=== PATIENT | male | born 1955 | race African-American/Black ===

== ENCOUNTER 2016-06-29 23:06 | Inpatient (IN) | payer OTHER ==
[2016-06-29 23:11] VITALS: BMI 31.1
[2016-06-29] MEDS ORDERED: SODIUM CHLORIDE 1,000 ML IV STA (23:55)
[2016-06-29] MEDS ORDERED: ALBUTEROL SO4 2.5/IPRATROPIUM 0.5 INH SOL 3 ML VIAL.NEB. NEB STA (23:56)
[2016-06-29] MEDS ORDERED: ACETAMINOPHEN 1000 MG/100 ML VIAL (NON FORMULARY) IVPB ONE (23:56)
--- NOTE | 2016-06-29 23:57 | PDOC ---
History of Present Illness - General History Source: Patient <Ubaldo Zhu - Last Filed: 06/30/16 01:42> - General History Source: Patient Exam Limitations: No Limitations - History of Present Illness Initial Comments: 06/30/16 00:19 The patient is a 60 year old male with no reported significant past medical history, who presents to the ER with left sided chest pain for 12 hours. Patient describes the pain as sharp and rates it at 8/10. 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 He says the chest pain has persisted since this morning and is nonradiating, with no remitting or exacerbating factors. He says he has associated chills, headache, shortness of breath, and nonproductive cough. Patient states he has not seen a doctor in over 10 years. Denies heavy lifting, leg pain or edema Denies fever Denies nausea, vomiting, diarrhea, abdominal pain Social Hx: 6 cigs/day for 30 years, social alcohol use on weekends, denies drug use <Diane Blake - Last Filed: 06/30/16 06:05> - General Chief Complaint: Chest Pain Stated Complaint: CHEST PAIN Time Seen by Provider: 06/29/16 23:54 Past History - Surgical History Appendectomy: Yes - Psycho/Social/Smoking Cessation Hx Suicidal Ideation: No Smoking History: Current every day smoker Number of Cigarettes Smoked Daily: 6 Information on smoking cessation initiated: No <Ubaldo Zhu - Last Filed: 06/30/16 01:42> <Diane Blake - Last Filed: 06/30/16 06:05> - Past Medical History Allergies/Adverse Reactions: Allergies Allergy/AdvReac Type Severity Reaction Status Date / Time No Known Allergies Allergy Verified 06/29/16 23:30 Home Medications: Ambulatory Orders NK [No Known Home Medication] 06/29/16 Review of Systems - Review of Systems Comments:: 06/30/16 00:20 CONSTITUTIONAL: Present: chills Absent: fever, no fatigue EYES: Absent: visual changes ENT: Absent: ear pain, no sore throat CARDIOVASCULAR: Present: (+) chest pain Absent: no palpitations RESPIRATORY: Present: (+) nonproductive cough, (+) SOB GI: Absent: abdominal pain, no nausea, no vomiting, no constipation, no diarrhea GENITOURINARY: Absent: dysuria, no frequency, no hematuria MUSCULOSKELETAL: Absent: back pain, no arthralgia, no myalgia SKIN: Absent: rash NEURO: Present: (+) headache <Diane Blake - Last Filed: 06/30/16 06:05> *Physical Exam - Vital Signs Last Vital Signs Temp Pulse Resp BP Pulse Ox 103 F H 124 H 20 169/98 95 06/29/16 23:09 06/29/16 23:09 06/29/16 23:09 06/29/16 23:09 06/29/16 23:09 <Ubaldo Zhu - Last Filed: 06/30/16 01:42> - Vital Signs Last Vital Signs Temp Pulse Resp BP Pulse Ox 103 F H 124 H 20 169/98 95 06/29/16 23:09 06/29/16 23:09 06/29/16 23:09 06/29/16 23:09 06/29/16 23:09 - Physical Exam Comments: 06/30/16 00:21 GENERAL: Well-appearing, well-nourished. No apparent distress. HEENT: Normocephalic, atraumatic. PERRL, EOM intact. CARDIOVASCULAR: Tachycardic. No murmurs. Normal S1, S2. Regular rhythm. PULMONARY: Auscultation of left upper and middle lobes yields inspiratory wheezes and expiratory rhonchi. Right lobes clear to auscultation. ABDOMEN: Soft, non-distended, non-tender. EXTREMITIES: No calf tenderness or swelling. Normal ROM in all four extremities. No gross deformities. SKIN: Warm, dry. No rash NEUROLOGICAL: No focal neurological deficits. <Diane Blake - Last Filed: 06/30/16 06:05> ED Treatment Course - LABORATORY CBC & Chemistry Diagram: 06/30/16 00:30 06/30/16 00:30 <Ubaldo Zhu - Last Filed: 06/30/16 01:42> - LABORATORY CBC & Chemistry Diagram: 06/30/16 00:30 06/30/16 00:30 - RADIOLOGY Radiograph Interpretation: 06/30/16 06:05 CT Chest Impression reported by Dr. Edwige Carlos: Consolidation left upper lobe, probably pneumonia. Advise follow-up after treatment to exclude underlying mass. No definite PE, but evaluation limited by motion artifact. No aortic dissection or aneurysm. Dependent atelectasis bilateral lungs. Trace left pleural effusion. Coronary artery disease. Small pericardial effusion. <Diane Blake - Last Filed: 06/30/16 06:05> *DC/Admit/Observation/Transfer - Discharge Dispostion Admit: Yes <Ubaldo Zhu - Last Filed: 06/30/16 01:42> - Attestations Scribe Attestion: 06/30/16 00:22 Documentation prepared by Diane Blake, acting as medical dosimetrist for Ubaldo Zhu DO. <Diane Blake - Last Filed: 06/30/16 06:05> Diagnosis at time of Disposition: Pneumonia Qualifiers: Pneumonia type: due to unspecified organism Laterality: left Lung location: lower lobe of lung Qualified Code(s): J18.1 - Lobar pneumonia, unspecified organism
[2016-06-30] MEDS ORDERED: ALBUTEROL SO4 2.5/IPRATROPIUM 0.5 INH SOL 3 ML VIAL.NEB. NEB ONE (00:43)
[2016-06-30] MEDS ORDERED: ACETAMINOPHEN INJECTION 100 ML IVPB ONE (00:43)
[2016-06-30 00:50] LABS: BASOPHIL 0.2 % (0-2.0); MCH 32.8 pg (25.7-33.7); MCHC 34.1 g/dl (32.0-35.9); MEAN CELL VOLUME 96.1 fl (80-96); MEAN PLT VOLUME 9.7 fl (7.5-11.1); PLATELET COUNT 220 K/MM3 (134-434); RDW 13.9 % (11.9-15.9)
[2016-06-30] MEDS ORDERED: AZITHROMYCIN 250 MG TABLET (FP) PO STA (01:00)
[2016-06-30 01:03] LABS: INR 1.12 (0.82-1.09); PROTHROMBIN TIME (PATIENT) 12.3 SEC (9.98-11.88)
[2016-06-30 01:41] LABS: ALBUMIN 3.9 g/dl (3.4-5.0); ALK PHOS 79 U/L (45-117); ANION GAP 12 (8-16); BILIRUBIN,TOTAL 0.8 mg/dL (0.2-1.0); CALCIUM 8.9 mg/dL (8.5-10.1); CO2 25 mmol/L (21-32); COCKROFT - GAULT 72.29; CREATININE 1.2 mg/dL (0.7-1.3); GLUCOSE,RANDOM 102 mg/dL (74-106); MAGNESIUM 1.7 mg/dL (1.8-2.4); SGOT/AST 54 U/L (15-37); SGPT/ALT 55 U/L (12-78); TROPONIN I 0.03 ng/ml (0.00-0.05)
[2016-06-30] MEDS ORDERED: CEFTRIAXONE 50 ML ONE (01:42)
[2016-06-30] MEDS ORDERED: AZITHROMYCIN 250 MG TABLET (FP) ONE (01:42)
[2016-06-30] MEDS ORDERED: MAGNESIUM SULF 50% (8.12 MEQ/2 ML-1 GM VIAL) IVPB ONE (02:22)
[2016-06-30] MEDS ORDERED: ALBUTEROL SO4 2.5/IPRATROPIUM 0.5 INH SOL 3 ML VIAL.NEB. NEB PRN (02:27)
[2016-06-30] MEDS: SODIUM CHLORIDE 1,000 ML IV SCH (02:42)
[2016-06-30] MEDS ORDERED: ASPIRIN 325 MG TABLET PO ONE (03:33)
--- NOTE | 2016-06-30 03:33 | PN ---
<Nida Villar - Last Filed: 06/30/16 04:32> Teaching Attending Note ATTENDING PHYSICIAN STATEMENT I saw and evaluated the patient. I reviewed the resident's note and discussed the case with the resident. I agree with the resident's findings and plan as documented. SUBJECTIVE: 60 yo M with no PMHx who presents with L sided chest pain for the past 12 hours. The patient describes the chest pain is sharp, 8/10 in severity, non radiating exacerbated by positional changes. The patient states his pain first began this morning and has been intermittent throughout the day. Patient reports associated chills, headache, shortness of breath, and nonproductive cough. Patient states he has not seen a doctor in over 10 years. 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 PMHx: None PSHx: Appendectomy Social hx: Current smoker 6 cigs/day for 30 years, social alcohol use on weekends, denies drug use Allergies: NKA OBJECTIVE: Last Vital Signs Temp Pulse Resp BP Pulse Ox 97.8 F 99 H 22 140/83 94 L 06/30/16 03:35 06/30/16 03:35 06/30/16 03:35 06/30/16 03:35 06/30/16 01:58 GENERAL: Awake, alert, and fully oriented, in moderate distress. +Pain 8/10 HEENT: Atraumatic. PERRLA, EOMI. Moist mucosa. No JVD LUNGS:+ Rhonchi. + L hemothorax. No distress, speaks full sentences, clear to auscultation bilaterally HEART: +Diaphoretic with pericardial rub. +Tachycardia. Regular rate normal S1 and S2, no murmurs, rubs or gallops, peripheral pulses normal and equal bilaterally. ABDOMEN: Soft, nontender, normoactive bowel sounds. No guarding, no rebound. No masses EXTREMITIES: Normal inspection, Normal range of motion, no edema. No clubbing or cyanosis. NEUROLOGICAL: Cranial nerves II through XII grossly intact. Normal speech, gait deffered no focal sensorimotor deficits SKIN: Warm, Dry, normal turgor, no rashes or lesions noted. CBCD WBC 16.0 K/mm3 (4.0-10.0) H 06/30/16 00:30 RBC 3.92 M/mm3 (4.00-5.60) L 06/30/16 00:30 Hgb 12.8 GM/dL (11.7-16.9) 06/30/16 00:30 Hct 37.7 % (35.4-49) 06/30/16 00:30 MCV 96.1 fl (80-96) H 06/30/16 00:30 MCHC 34.1 g/dl (32.0-35.9) 06/30/16 00:30 RDW 13.9 % (11.9-15.9) 06/30/16 00:30 Plt Count 220 K/MM3 (134-434) 06/30/16 00:30 MPV 9.7 fl (7.5-11.1) 06/30/16 00:30 CMP Sodium 140 mmol/L (136-145) 06/30/16 00:30 Potassium 3.5 mmol/L (3.5-5.1) 06/30/16 00:30 Chloride 103 mmol/L (98-107) 06/30/16 00:30 Carbon Dioxide 25 mmol/L (21-32) 06/30/16 00:30 Anion Gap 12 (8-16) 06/30/16 00:30 BUN 17 mg/dL (7-18) 06/30/16 00:30 Creatinine 1.2 mg/dL (0.7-1.3) 06/30/16 00:30 Creat Clearance w eGFR > 60 (>60) 06/30/16 00:30 Calcium 8.9 mg/dL (8.5-10.1) 06/30/16 00:30 Total Bilirubin 0.8 mg/dL (0.2-1.0) 06/30/16 00:30 AST 54 U/L (15-37) H 06/30/16 00:30 ALT 55 U/L (12-78) 06/30/16 00:30 Alkaline Phosphatase 79 U/L (45-117) 06/30/16 00:30 Total Protein 7.0 g/dl (6.4-8.2) 06/30/16 00:30 Albumin 3.9 g/dl (3.4-5.0) 06/30/16 00:30 ASSESSMENT AND PLAN: Sepsis PNA Chest pain vs possibly viral pericarditis r.o ACS CT Chest r/o mass vs pericarditis Aspirin 325 mg STAT O2 nasal cannula Hemoglobin A1C, Lipid, Repeat troponins Repeat stress test Morphine 2 mg Q4 Nitro sublingual PRN Smoking cessation Nicotine patch Echo Cardiology consult [facility] Ceftriaxone and Azithromycin Albuterol PRN DVT PPx Heparin SQ 5000 TID Documentation prepared by Nida Villar, acting as medical service representative for Ayesha Ramires MD. <Ayesha Ramires - Last Filed: 07/12/16 20:35> Teaching Attending Note Name of Resident: Dillon Pina
[2016-06-30] MEDS ORDERED: SODIUM CHLORIDE 500 ML IV STA (03:42)
[2016-06-30] MEDS ORDERED: ALBUTEROL SO4 0.083% IH SOL 2.5 MG/3 ML VIAL.NEB. NEB PRN (03:44)
[2016-06-30] MEDS ORDERED: morphine CARPU-JECT 2 MG/1 ML DISP.SYRIN IVPUSH PRN (03:44)
[2016-06-30] MEDS ORDERED: NITROGLYCERIN SUBLINGUAL 1/150 0.4 MG TAB SL PRN (03:44)
[2016-06-30] MEDS ORDERED: ALBUTEROL SO4 2.5/IPRATROPIUM 0.5 INH SOL 3 ML VIAL.NEB. NEB SCH (03:45)
--- NOTE | 2016-06-30 04:28 | HP ---
CHIEF COMPLAINT: Chest Pain PCP: none HISTORY OF PRESENT ILLNESS: 60 year old male with no significant pmh (since he has not been to the doctor in over 10 years and is not on any medications) presented to the ED with complaint of chest pain. The symptoms started yesterday afternoon at 4Pm after work with severe 8/10 chest pain, constant, pressure, in left central chest, non radiating, no alleviating factor, worsening to deep breath and certain position. Pt also had fever, chills, diaphoresis, non productive cough, shortness of breath, dyspnea on exertion, lightheadedness. Denies rhinorrhea or nasal congestion. No palpitation, Lower ext edema, no orthopnea. No abdominal pain, n/v, no melena or hematochezia. No recent immobilization, no hormone use, no h/o cancer. ER course was notable for: (1) CXR with left midlung infiltrates, consolidation (2) Ceftriaxone, Azithromycin (3) Abnormal ekg Recent Travel: none PAST MEDICAL HISTORY: none PAST SURGICAL HISTORY: Appendectomy Social History: Smokin/3 pack cigarette per day, for 30 years Alcohol: denies Drugs:denies Family History: denies Allergies No Known Allergies Allergy (Verified 06/29/16 23:30) HOME MEDICATIONS: Home Medications Medication Instructions Recorded NK [No Known Home Medication] 06/29/16 REVIEW OF SYSTEMS CONSTITUTIONAL: fever, chills, diaphoresis Absent: generalized weakness, malaise, loss of appetite, weight change HEENT: Absent: rhinorrhea, nasal congestion, throat pain, throat swelling, difficulty swallowing, mouth swelling, ear pain, eye pain, visual changes CARDIOVASCULAR: chest pain,lightheadedness Absent: syncope, palpitations, irregular heart rate, peripheral edema RESPIRATORY: cough, shortness of breath, dyspnea with exertion, orthopnea, wheezing Absent: stridor, hemoptysis GASTROINTESTINAL: Absent: abdominal pain, abdominal distension, nausea, vomiting, diarrhea, constipation, melena, hematochezia GENITOURINARY: Absent: dysuria, frequency, urgency, hesitancy, hematuria, flank pain, genital pain MUSCULOSKELETAL: Absent: myalgia, arthralgia, joint swelling, back pain, neck pain SKIN: Absent: rash, itching, pallor HEMATOLOGIC/IMMUNOLOGIC: Absent: easy bleeding, easy bruising, lymphadenopathy, frequent infections ENDOCRINE: Absent: unexplained weight gain, unexplained weight loss, heat intolerance, cold intolerance NEUROLOGIC: Absent: headache, focal weakness or paresthesias, dizziness, unsteady gait, seizure, mental status changes, bladder or bowel incontinence PSYCHIATRIC: Absent: anxiety, depression, suicidal or homicidal ideation, hallucinations. PHYSICAL EXAMINATION Vital Signs - 24 hr 06/30/16 06/30/16 01:58 03:35 Temperature 99.5 F 97.8 F Pulse Rate 99 H Pulse Rate [ 118 H Right] Respiratory 20 22 Rate Blood Pressure 140/83 Blood Pressure 119/65 [Right Arm] O2 Sat by Pulse 94 L Oximetry (%) GENERAL: Awake, alert, and fully oriented, moderate distress due to chest pain, diaphoretic. HEAD: Normal with no signs of trauma. EYES: Pupils equal, round and reactive to light, extraocular movements intact, sclera anicteric, conjunctiva clear. No lid lag. EARS, NOSE, THROAT: Ears normal, nares patent, oropharynx clear without exudates. Moist mucous membranes. NECK: Normal range of motion, supple without lymphadenopathy, JVD, or masses. LUNGS: scattered ronchi, exp wheezes, bibasilar crackles worse in left. No accessory muscle use. left anterior chest wall tenderness HEART: Regular rate and rhythm, normal S1 and S2 with systolic 2/6 murmur, positive rub ABDOMEN: Soft, nontender, not distended, normoactive bowel sounds, no guarding, no rebound, no masses. No hepatomegaly or splenomegaly. MUSCULOSKELETAL: Normal range of motion at all joints. No bony deformities or tenderness. No CVA tenderness. UPPER EXTREMITIES: 2+ pulses, warm, well-perfused. No cyanosis. No clubbing. No peripheral edema. LOWER EXTREMITIES: 2+ pulses, warm, well-perfused. No calf tenderness. No peripheral edema. NEUROLOGICAL: Cranial nerves II-XII intact. Normal speech. Normal gait. PSYCHIATRIC: Cooperative. Good eye contact. Appropriate mood and affect. SKIN: Warm, dry, normal turgor, no rashes or lesions noted, normal capillary refill. Laboratory Results - last 24 hr 06/30/16 02:23 Lactic Acid 2.077 H* EKG1: Sinus tachycardia with T wave inversion in I, AVL, V4, V5, V6, minimal ST elevation or early repolarization in leads V1, V2, v3, qwaves in lead v1, v2 EKG1: Sinus tachycardia with T wave inversion in I, AVL, V5, V6, minimal ST elevation or early repolarization in leads V1, V2, v3, qwaves in lead v1, v2 ASSESSMENT/PLAN: 60 year old male with no significant pmh presented to the ED with complaint of chest pain, fever, cough was found to have left mid-lung infiltrates, consolidation and ekg abnormalities. Chest pain r/o ACS, pericarditis Stat EKg stat Cardiac profile stat CT chest with contrast Aspirin 325 po once Stat nitro sublingual Stat morhine 12 mg IV once echocardiogram Stress test sestamibi Cardiology consult Dr Ngo Lipid profile Hg1c Start Ibuprofen 600mg q8h Consider colchicine Sepsis from community acquired pneumonia r/o COPD since patient has been a smoker for more than 30 years CXR showed right middle lobe and lower lobe infiltrates/consolidation, awaiting official reading. CT chest with contrast urine for pneumonia antigen Sputum culture blood culture lactic acid CBC CMP Duoneb q6h Albuterol PRN Azithromycin 500mg daily Ceftriaxone 1gm Iv daily Hypomagnesemia Mg 1.7 Magnesium sulfate 1gm once Smoking cessation Nicotine patch DVT prophylaxis: SCD FEN fluid: none electrolytes: repleted, repeat now Nutrition: cardiac Disposition: admit to telemetry Visit type - Emergency Visit Emergency Visit: Yes ED Registration Date: 06/30/16 Care time: The patient presented to the Emergency Department on the above date and was hospitalized for further evaluation of their emergent condition. - New Patient This patient is new to me today: Yes Date on this admission: 06/30/16 - Critical Care Critical Care patient: No
[2016-06-30] MEDS ORDERED: morphine CARPU-JECT 2 MG/1 ML DISP.SYRIN IVPUSH ONE (04:29)
[2016-06-30 06:03] LABS: MCH 32.2 pg (25.7-33.7); MCHC 33.1 g/dl (32.0-35.9); MEAN CELL VOLUME 97.3 fl (80-96); MEAN PLT VOLUME 10.3 fl (7.5-11.1); PLATELET COUNT 217 K/MM3 (134-434); RDW 14.2 % (11.9-15.9); WHITE BLOOD COUNT 19.3 K/mm3 (4.0-10.0)
[2016-06-30 06:14] LABS: CALCIUM 8.9 mg/dL (8.5-10.1); COCKROFT - GAULT 54.21; CREATININE 1.6 mg/dL (0.7-1.3); MAGNESIUM 2.1 mg/dL (1.8-2.4)
[2016-06-30 06:15] LABS: TROPONIN I 0.03 ng/ml (0.00-0.05)
[2016-06-30] MEDS: HEPARIN NA (PORCINE) 5,000 UNITS/ML 1ML VIAL SQ SCH ×3 (07:00→21:35)
[2016-06-30 07:05] LABS: INR 1.14 (0.82-1.09); PROTHROMBIN TIME (PATIENT) 12.6 SEC (9.98-11.88)
[2016-06-30 07:07] LABS: ACTIVATED PTT 27.5 SECONDS (26.9-34.4)
[2016-06-30] MEDS ORDERED: IBUPROFEN 600 MG TABLET (FP) PO SCH (08:00)
[2016-06-30] MEDS ORDERED: POTASSIUM CHLORIDE ORAL LIQUID 20 MEQ/15 ML PO ONE (08:00)
[2016-06-30] MEDS ORDERED: PT OWN MED DRAWER 7, Y5N ONE ×2 (09:34→17:12)
[2016-06-30] MEDS ORDERED: AZITHROMYCIN IVPB 500 MG in DEXTROSE 5%-WATER - 250 ML IVPB SCH (10:00)
[2016-06-30] MEDS ORDERED: CEFTRIAXONE 1 GM in DEXTROSE 5%-WATER - 50 ML IVPB SCH (10:00)
[2016-06-30] MEDS ORDERED: traMADol HCL 50 MG TABLET PO PRN (10:45)
[2016-06-30] MEDS: ALBUTEROL SO4 2.5/IPRATROPIUM 0.5 INH SOL 3 ML VIAL.NEB. NEB SCH ×2 (10:45→16:50)
[2016-06-30 11:04] LABS: TROPONIN I < 0.02 ng/ml (0.00-0.05)
--- NOTE | 2016-06-30 11:23 | CON.CARD ---
Cardiology Consult (text) - Consultation Consultation Note: cc: sob, cp hpi: 60 m no sig pmhx here with sob, cp. Pt has no hx hrt dz. Had been feeling well until yesterday when was walking and noticed yates and cough and left sided sharp cp. CP mild, sharp, left side chest, worse with deep breaths/ cough/moving. Nonproductive cough also. No palps, loc, pnd, orthopnea, le edema. Found to have pna, now on abx. pmh: per hpi psh: nc social: +tob fam: mom mi 70s, sister cabg 50s ros: per hpi; no nvd, vision changes, wt loss, gib, hematuria, muscle pains, +ZAPATA , +chills meds: Home Medications Medication Instructions Recorded NK [No Known Home Medication] 06/29/16 pe: Vital Signs Period Temp Pulse Resp BP Sys/Madden Pulse Ox Last 24 Hr 97.8 F-103 F 99-124 20-22 119-169/65-98 94-95 nad no jvd rrr s1s2 no mrg cta bl nl eff aaox3 no le e/c/c abd nt nd pos bs no jaundice diaphoresis pos dp pt no carotid bruits Laboratory Last Values WBC 19.3 K/mm3 (4.0-10.0) H 06/30/16 04:00 RBC 3.85 M/mm3 (4.00-5.60) L 06/30/16 04:00 Hgb 12.4 GM/dL (11.7-16.9) 06/30/16 04:00 Hct 37.5 % (35.4-49) 06/30/16 04:00 MCV 97.3 fl (80-96) H 06/30/16 04:00 MCHC 33.1 g/dl (32.0-35.9) 06/30/16 04:00 RDW 14.2 % (11.9-15.9) 06/30/16 04:00 Plt Count 217 K/MM3 (134-434) 06/30/16 04:00 MPV 10.3 fl (7.5-11.1) 06/30/16 04:00 Neutrophils % 87.0 % (42.8-82.8) H 06/30/16 00:30 Lymphocytes % 9.9 % (8-40) 06/30/16 00:30 Monocytes % 2.9 % (3.8-10.2) L 06/30/16 00:30 Eosinophils % 0.0 % (0-4.5) 06/30/16 00:30 Basophils % 0.2 % (0-2.0) 06/30/16 00:30 INR 1.14 (0.82-1.09) 06/30/16 06:05 PTT (Actin FS) 27.5 SECONDS (26.9-34.4) 06/30/16 06:05 D-Dimer 238 ng/ml (<200-235) H 06/30/16 00:30 Sodium 141 mmol/L (136-145) 06/30/16 04:00 Potassium 3.4 mmol/L (3.5-5.1) L 06/30/16 04:00 Chloride 105 mmol/L (98-107) 06/30/16 04:00 Carbon Dioxide 24 mmol/L (21-32) 06/30/16 04:00 Anion Gap 12 (8-16) 06/30/16 04:00 BUN 20 mg/dL (7-18) H 06/30/16 04:00 Creatinine 1.6 mg/dL (0.7-1.3) H D 06/30/16 04:00 Creat Clearance w eGFR > 60 (>60) 06/30/16 00:30 Random Glucose 98 mg/dL (74-106) 06/30/16 04:00 Lactic Acid 2.136 mmol/L (0.4-2.0) H* 06/30/16 04:06 Calcium 8.9 mg/dL (8.5-10.1) 06/30/16 04:00 Phosphorus 3.0 mg/dL (2.5-4.9) 06/30/16 04:06 Magnesium 2.1 mg/dL (1.8-2.4) D 06/30/16 04:00 Total Bilirubin 0.8 mg/dL (0.2-1.0) 06/30/16 00:30 AST 54 U/L (15-37) H 06/30/16 00:30 ALT 55 U/L (12-78) 06/30/16 00:30 Alkaline Phosphatase 79 U/L (45-117) 06/30/16 00:30 Creatine Kinase 893 IU/L (39-308) H 06/30/16 10:00 Creatine Kinase Index 0.1 % (0.0-5.0) 06/30/16 00:30 CK-MB (CK-2) 1.121 ng/ml (0.5-3.6) 06/30/16 00:30 CK-MB (CK-2) Rel Index Cancelled 06/30/16 00:30 Troponin I < 0.02 ng/ml (0.00-0.05) D 06/30/16 10:00 Total Protein 7.0 g/dl (6.4-8.2) 06/30/16 00:30 Albumin 3.9 g/dl (3.4-5.0) 06/30/16 00:30 Triglycerides 188 mg/dL (35-160) H 06/30/16 04:06 Cholesterol 193 mg/dL (50-200) 06/30/16 04:06 Total LDL Cholesterol 108 mg/dL (5-100) H 06/30/16 04:06 HDL Cholesterol 51 mg/dL (40-60) 06/30/16 04:06 tele: sinus tachy, pacs cxr: left pna ecg 06/29/16: sinus tachy, nl intervals, lvh with repol changes a/p: 60 m no sig pmhx here with sob, cp. sob, pna: -no signs chf, likely due to pna -can check echo -cont abx cp: -atypical, pleuritic, seems related to PNA, no signs acs -trop neg x2 -check echo -monitor for resolution of cp as pna resolves umesh: -likely 2/2 infection, cont ivfs, monitor cr smoking: -tobacco cessation
[2016-06-30] MEDS: NICOTINE 14 MG/24 HOURS TOPICAL PATCH TD SCH (11:40)
[2016-06-30] MEDS ORDERED: AZITHROMYCIN IVPB 500 MG/250 ML D5W PRE-DOCKED IVPB SCH ×2 (12:04→20:00)
[2016-06-30] MEDS ORDERED: cefTRIAXone 1 GM/50 ML BAG (PRE-DOCKED) IVPB SCH ×2 (12:04→20:00)
--- NOTE | 2016-06-30 16:14 | EKG ---
Test Reason : Blood Pressure : / mmHG Vent. Rate : 099 BPM Atrial Rate : 099 BPM P-R Int : 148 ms QRS Dur : 094 ms QT Int : 348 ms P-R-T Axes : 053 -16 132 degrees QTc Int : 446 ms NORMAL SINUS RHYTHM POSSIBLE LEFT ATRIAL ENLARGEMENT LEFT VENTRICULAR HYPERTROPHY WITH REPOLARIZATION ABNORMALITY CANNOT RULE OUT SEPTAL INFARCT , AGE UNDETERMINED ABNORMAL ECG WHEN COMPARED WITH ECG OF 29-JUN-2016 23:17, ST NO LONGER DEPRESSED IN LATERAL LEADS Confirmed by ALYSE RAMOS MD ([id number]) on 06/30/2016 4:14:30 PM Referred By: Confirmed By:ALYSE RAMOS MD
--- NOTE | 2016-06-30 16:15 | EKG ---
Test Reason : Blood Pressure : / mmHG Vent. Rate : 114 BPM Atrial Rate : 114 BPM P-R Int : 150 ms QRS Dur : 090 ms QT Int : 342 ms P-R-T Axes : 059 -16 121 degrees QTc Int : 471 ms SINUS TACHYCARDIA POSSIBLE LEFT ATRIAL ENLARGEMENT LEFT VENTRICULAR HYPERTROPHY WITH REPOLARIZATION ABNORMALITY ABNORMAL ECG NO PREVIOUS ECGS AVAILABLE Confirmed by ALYSE RAMOS MD ([id number]) on 06/30/2016 4:14:55 PM Referred By: Confirmed By:ALYSE RAMOS MD
[2016-06-30] MEDS: ACETAMINOPHEN 325 MG TABLET (FP) PO PRN (17:40)
[2016-06-30] MEDS ORDERED: AZITHROMYCIN IVPB 500 MG in DEXTROSE 5%-WATER - 250 ML IVPB ONE (18:24)
--- NOTE | 2016-06-30 18:43 | PN ---
Physical Exam: SUBJECTIVE: Patient seen and examined at bed side this morning. Complaints of left sided chest pain, 6/10 in intensity on deep inspiration, movement, non radiating, relieved by taking shallow breaths associated with sob. Denies palpitation, abdominal pain, nausea or vomiting. Bladder habit normal. Patient mentioned he hasn't seen a physician over 30 years. OBJECTIVE: Vital Signs Period Temp Pulse Resp BP Sys/Madden Pulse Ox Last 24 Hr 97.8 F-99.8 F 99-118 20-22 119-147/65-84 94-98 GENERAL: The patient is mildly obese, awake, alert, and fully oriented, in no acute distress, in non rebreather. HEAD: Normal with no signs of trauma. EYES: EOM intact, no pallor or icterus. ENT: Ears normal, moist mucous membranes. NECK: Trachea midline, full range of motion, supple. LUNGS: Breath sounds equal, occasional wheezes, bibasilar crackles, no accessory muscle use. Tenderness on palpation over the left 2nd to 5th intercoastal spaces. HEART: Regular rate and rhythm, S1, S2 without murmur. ABDOMEN: Soft, nontender, nondistended, normoactive bowel sounds, no guarding, no rebound, no hepatosplenomegaly, no masses. EXTREMITIES: 2+ pulses, warm, well-perfused, no edema. NEUROLOGICAL: Cranial nerves II through XII grossly intact. Normal speech, gait not observed. PSYCH: Normal mood, normal affect. SKIN: Warm, dry, normal turgor, no rashes or lesions noted Laboratory Results - last 24 hr 06/30/16 06/30/16 06/30/16 02:23 04:00 04:00 WBC 19.3 H RBC 3.85 L Hgb 12.4 Hct 37.5 MCV 97.3 H MCHC 33.1 RDW 14.2 Plt Count 217 MPV 10.3 INR PTT (Actin FS) Sodium 141 Potassium 3.4 L Chloride 105 Carbon Dioxide 24 Anion Gap 12 BUN 20 H Creatinine 1.6 H D Random Glucose 98 Hemoglobin A1c % Lactic Acid 2.077 H* Calcium 8.9 Phosphorus Magnesium 2.1 D Creatine Kinase 914 H Creatine Kinase Index CK-MB (CK-2) CK-MB (CK-2) Rel Index Troponin I 0.03 Triglycerides Cholesterol Total LDL Cholesterol HDL Cholesterol TSH 06/30/16 06/30/16 06/30/16 04:00 04:06 04:06 WBC RBC Hgb Hct MCV MCHC RDW Plt Count MPV INR PTT (Actin FS) Sodium Potassium Chloride Carbon Dioxide Anion Gap BUN Creatinine Random Glucose Hemoglobin A1c % 6.0 Lactic Acid Calcium Phosphorus 3.0 Magnesium Creatine Kinase Creatine Kinase Index CK-MB (CK-2) CK-MB (CK-2) Rel Index Cancelled Troponin I Triglycerides 188 H Cholesterol 193 Total LDL Cholesterol 108 H HDL Cholesterol 51 TSH 06/30/16 06/30/16 06/30/16 04:06 06:05 10:00 WBC RBC Hgb Hct MCV MCHC RDW Plt Count MPV INR 1.14 PTT (Actin FS) 27.5 Sodium Potassium Chloride Carbon Dioxide Anion Gap BUN Creatinine Random Glucose Hemoglobin A1c % Lactic Acid 2.136 H* Calcium Phosphorus Magnesium Creatine Kinase 893 H Creatine Kinase Index 0.3 CK-MB (CK-2) 2.968 CK-MB (CK-2) Rel Index Troponin I < 0.02 D Triglycerides Cholesterol Total LDL Cholesterol HDL Cholesterol TSH 06/30/16 06/30/16 06/30/16 10:00 10:00 11:20 WBC RBC Hgb Hct MCV MCHC RDW Plt Count MPV INR PTT (Actin FS) Sodium Potassium Chloride Carbon Dioxide Anion Gap BUN Creatinine Random Glucose Hemoglobin A1c % Lactic Acid 3.571 H* Calcium Phosphorus Magnesium Creatine Kinase Creatine Kinase Index CK-MB (CK-2) CK-MB (CK-2) Rel Index Cancelled Troponin I Triglycerides Cholesterol Total LDL Cholesterol HDL Cholesterol TSH 2.16 06/30/16 13:00 WBC RBC Hgb Hct MCV MCHC RDW Plt Count MPV INR PTT (Actin FS) Sodium Potassium Chloride Carbon Dioxide Anion Gap BUN Creatinine Random Glucose Hemoglobin A1c % Lactic Acid 2.742 H* Calcium Phosphorus Magnesium Creatine Kinase Creatine Kinase Index CK-MB (CK-2) CK-MB (CK-2) Rel Index Troponin I Triglycerides Cholesterol Total LDL Cholesterol HDL Cholesterol TSH Active Medications Generic Name Dose Route Start Last Admin Trade Name Freq PRN Reason Stop Dose Admin Acetaminophen 650 mg 06/30/16 02:23 06/30/16 17:40 Tylenol - PO 650 mg Q4H PRN Administration FEVER OR PAIN Albuterol Sulfate 1 amp 06/30/16 03:44 Ventolin 0.083% Nebulizer Soln - NEB Q4H PRN SHORT OF BREATH/WHEEZING Albuterol/Ipratropium 1 amp 06/30/16 06:04 06/30/16 16:50 Duoneb - NEB 1 amp QIDR [facility]OWER Administration Azithromycin 500 mg 07/01/16 10:00 Zithromax 500mg Ivpb (Pre-Docked) IVPB DAILY FLOWER Ceftriaxone Sodium 1 gm 07/01/16 10:00 Rocephin 1gm Ivpb (Pre-Docked) IVPB DAILY [facility] Heparin Sodium (Porcine) 5,000 unit 06/30/16 06:00 06/30/16 17:00 Heparin - SQ 5,000 unit TID FLOWER Administration Sodium Chloride 1,000 mls @ 100 mls/hr 06/30/16 02:30 06/30/16 02:42 Normal Saline - IV 100 mls/hr ASDIR FLOWER Administration Azithromycin 500 mg/ Dextrose 250 mls @ 250 mls/hr 06/30/16 18:24 IVPB 06/30/16 19:23 ONCE ONE Morphine Sulfate 2 mg 06/30/16 03:44 06/30/16 18:03 Morphine Injection - IVPUSH 07/01/16 03:43 2 mg Q4H PRN Administration PAIN Nicotine 14 mg 06/30/16 10:00 06/30/16 11:40 Nicoderm Patch - TD Not Given DAILY FLOWER Tramadol HCl 50 mg 06/30/16 10:45 Ultram - PO Q6H PRN PAIN 06/30/2016 CT chest showed Findings consistent with consolidation/pneumonia mainly in the left upper lobe. 06/30/2016: CXR: Left Parahilar consolidation with air bronchograms EKG: Sinus tachycardia with T wave inversion in I, AVL, V4, V5, V6, minimal ST elevation or early repolarization in leads V1, V2, v3, qwaves in lead v1, v2 ASSESSMENT/PLAN: Patient is a 60 year old male with no significant past medical history of presented to the ED with complaint of chest pain, fever, cough was found to have left mid-lung infiltrates, consolidation and ekg abnormalities. # Severe Sepsis from community acquired pneumonia Patient presented with LRTI symptoms with fever Leukocytosis of 16 on admission with a lactic acid of 2 CXR Left Parahilar consolidation with air bronchograms CT chest showed Findings consistent with consolidation/pneumonia mainly in the left upper lobe. Admitted in Telemetry for continuous cardiac monitoring IV NS @ 100mls/hr IV Ceftriaxone and IV Azithromycin Duoneb q6h Sputum culture Urine for legionella Albuterol PRN Oxygen PRN Repeat lactic acid was 3.5--->2.7 Lactic acid ordered stat, if it is trending down please decrease fluids to 75mls/hr # Chest pain likely due to costochondritis R/o ACS Received Aspirin 325 po once in the ED IV Morhine 2 mg IV Q4H PRN Echo report pending Atorvastatin 10mg HS HbA1c Cardiology consult appreciated Needs outpatient stress test. # Pericardial effusion Incidental finding of Pericardial effusion R/O TB: Ordered Quantiferon test # Hypomagnesemia Mg 1.7 repleted Magnesium sulfate 1gm once # Smoking cessation R/O COPD (Needs PFT as outpatient) since patient has been a smoker for more than 30 years Nicotine patch # Prophylaxis: For DVT SCD For GI: Not indicated # FEN IV NS @ 100mls/hr fluid: none Electrolytes: repleted and to be repeated now. Cardiac diet # Disposition: admit to telemetry. Duration of stay unknown. Illness, Investigation and Plan of care explained to the patient. He verbalized understanding. Case seen and discussed with Dr. Morin. Visit type - Emergency Visit Emergency Visit: Yes ED Registration Date: 06/30/16 Care time: The patient presented to the Emergency Department on the above date and was hospitalized for further evaluation of their emergent condition. - New Patient This patient is new to me today: No - Critical Care Critical Care patient: No - Discharge Referral Referred to [facility] Med P.C.: No
--- NOTE | 2016-06-30 19:30 | PN ---
Teaching Attending Note Name of Resident: Shantelle Ziegler ATTENDING PHYSICIAN STATEMENT I saw and evaluated the patient. I reviewed the resident's note and discussed the case with the resident. I agree with the resident's findings and plan as documented. SUBJECTIVE: has L sided cp which started yesterday, not getting better , worse with upper body movements and with deep inspiration . minimal SOB OBJECTIVE: NAD CV: RRR lungs no crackles heard ext : no edema Abd :soft < NT, ND MS : TTP over L sided cp uma over costocondral junction ASSESSMENT AND PLAN: 60 y/o man with no medical f/u wo presented with L sided CP and was found tohave L sided CAP and sepssi 1- severe sepsis , due to L sided CAP . - cont ceftriaxone and azithro - follow blood cx - get U legioela , pneumococcal and plasma mycoplasma IgM abs - resuscitation with IVF and repeat lactate . 2- L sided CP : MS in etiology , llikel y costochonderitis as has tenderness over the costochondral junction - can't give NSAIDs due to renal failure - give tramadol - no signs of acute ischemia on EKG. - LVH with repolarization changes . changes due to tachycardia resolved on repeat EKG - no signs of pericarditis. .CT scan with ? pericardial effusion - check echo -canceled stress test ordered by night team as pt is septic . 3- MARYANNE : due to cvolume depletionand sepsis . - IVF 4- HLOC need PCP
[2016-06-30] MEDS ORDERED: AZITHROMYCIN IVPB 250 ML IVPB ONE (20:45)
[2016-06-30] MEDS: ATORVASTATIN CA 10 MG TABLET (FP) PO SCH (21:35)
[2016-07-01] MEDS: ALBUTEROL SO4 2.5/IPRATROPIUM 0.5 INH SOL 3 ML VIAL.NEB. NEB SCH ×4 (00:05→18:27)
[2016-07-01] MEDS ORDERED: morphine CARPU-JECT 2 MG/1 ML DISP.SYRIN IVPUSH ONE (06:03)
[2016-07-01] MEDS: HEPARIN NA (PORCINE) 5,000 UNITS/ML 1ML VIAL SQ SCH ×3 (06:12→21:29)
[2016-07-01] MEDS: SODIUM CHLORIDE 1,000 ML IV SCH (06:13)
[2016-07-01] MEDS: ACETAMINOPHEN 325 MG TABLET (FP) PO PRN (06:20)
[2016-07-01] MEDS ORDERED: morphine CARPU-JECT 2 MG/1 ML DISP.SYRIN IVPUSH PRN ×2 (06:29→17:09)
--- NOTE | 2016-07-01 06:32 | HOSP ---
Subjective - Review of Symptoms Events since last encounter: severe chest pain Subjective: pateint c/o severe mis ternalplauritic chest pain, same as he was having on admission. no palpitations. sob because pain affects inspiration. currently febrile General: Yes: Fatigue HEENT: No: Head Aches Pulmonary: Yes: Pleuritic Chest Pain. No: Dyspnea, Cough Cardiovascular: No: Chest Pain, Palpitations, Orthopnea, Paroxysmal Noc. Dyspnea , Edema, Light Headedness Gastrointestinal: No: Nausea, Vomiting, Abdominal Pain Musculoskeletal: No: Back Pain Physical Examination Vital Signs: Vital Signs Temperature 98.2 F 07/01/16 02:00 Pulse Rate 87 07/01/16 02:00 Respiratory Rate 20 07/01/16 02:00 Blood Pressure 144/74 07/01/16 02:00 O2 Sat by Pulse Oximetry (%) 96 06/30/16 22:00 Cardiovascular: Yes: Regular Rate and Rhythm, S1, S2 Respiratory: Yes: Rales, Rhonchi, SOB Gastrointestinal: Yes: Normal Bowel Sounds, Soft Neurological: Yes: Alert, Oriented Psychiatric: Yes: Alert, Oriented Labs: CBC, BMP 06/30/16 04:00 06/30/16 04:00 Hospitalist Encounter Assessment: Severe pleuritic chest pain due to CAP -assessed by cardiology yesterday, no acs or pericarditis -stat ekg no change from prior -reorder morphine 2q4 iv -tylenol for fever Visit type - Emergency Visit Emergency Visit: Yes ED Registration Date: 06/30/16 Care time: The patient presented to the Emergency Department on the above date and was hospitalized for further evaluation of their emergent condition. - New Patient This patient is new to me today: No - Critical Care Critical Care patient: No
[2016-07-01 07:38] LABS: MCH 33.6 pg (25.7-33.7); MCHC 34.6 g/dl (32.0-35.9); MEAN CELL VOLUME 97.1 fl (80-96); MEAN PLT VOLUME 9.8 fl (7.5-11.1); PLATELET COUNT 184 K/MM3 (134-434); RDW 14.2 % (11.9-15.9); WHITE BLOOD COUNT 20.2 K/mm3 (4.0-10.0)
[2016-07-01 08:26] LABS: ALBUMIN 3.1 g/dl (3.4-5.0); ALK PHOS 80 U/L (45-117); ANION GAP 10 (8-16); BILIRUBIN,TOTAL 0.6 mg/dL (0.2-1.0); CALCIUM 8.4 mg/dL (8.5-10.1); CO2 27 mmol/L (21-32); COCKROFT - GAULT 108.43; CREATININE 0.8 mg/dL (0.7-1.3); GLUCOSE,RANDOM 113 mg/dL (74-106); MAGNESIUM 2.3 mg/dL (1.8-2.4); PHOSPHOROUS 1.7 mg/dL (2.5-4.9); SGOT/AST 32 U/L (15-37); SGPT/ALT 53 U/L (12-78); TOT PROT 6.1 g/dl (6.4-8.2); TROPONIN I < 0.02 ng/ml (0.00-0.05)
[2016-07-01] MEDS ORDERED: NAPH,MB-DB/K PH,MBDB POWDER PACKET PO ONE (09:29)
[2016-07-01] MEDS: NICOTINE 14 MG/24 HOURS TOPICAL PATCH TD SCH (09:35)
[2016-07-01] MEDS ORDERED: PT OWN MED DRAWER 7, Y5N ONE ×2 (09:51→16:58)
--- NOTE | 2016-07-01 09:53 | PN ---
Addendum entered and electronically signed by Shantelle Ziegler RES 07/01/16 19 :04: Added Amlodipine 5mg stat and 5mg PO daily from tomorrow. Patient's blood pressure ranged between 175 -165 systolic and 101-95 mmHg during the day. Gentle hydration to be continued overnight and to discontinue tomorrow. Original Note: Physical Exam: SUBJECTIVE: Patient seen and examined at bed side this morning. Overnight patient said that he had severe left sided chest pain, 10/10 in intensity, non radiating, pressure type, no relieving positions or aggravating factors. It resolved after he received IV Morphine. Today, his chest pain has resolved. Denies sob, cough, palpitation, abdominal pain, nausea or vomiting. Bladder habit normal. OBJECTIVE: Vital Signs Period Temp Pulse Resp BP Sys/Madden Pulse Ox Last 24 Hr 97.7 F-100 F 87-116 20-22 120-162/74-95 94-99 GENERAL: The patient is mildly obese, awake, alert, and fully oriented, in no acute distress. HEAD: Normal with no signs of trauma. EYES: EOM intact, no pallor or icterus. ENT: Ears normal, moist mucous membranes. NECK: Trachea midline, full range of motion, supple. LUNGS: Breath sounds equal, occasional wheezes, bibasilar crackles, no accessory muscle use. No tenderness on palpation over the left side of the chest. HEART: Regular rate and rhythm, S1, S2 without murmur. ABDOMEN: Soft, nontender, nondistended, normoactive bowel sounds, no guarding, no rebound, no hepatosplenomegaly, no masses. EXTREMITIES: 2+ pulses, warm, well-perfused, no edema. NEUROLOGICAL: Cranial nerves II through XII grossly intact. Normal speech, gait not observed. PSYCH: Normal mood, normal affect. SKIN: Warm, dry, normal turgor, no rashes or lesions noted Laboratory Results - last 24 hr 06/30/16 06/30/16 06/30/16 04:06 10:00 10:00 WBC RBC Hgb Hct MCV MCHC RDW Plt Count MPV Sodium Potassium Chloride Carbon Dioxide Anion Gap BUN Creatinine Creat Clearance w eGFR Random Glucose Hemoglobin A1c % 6.0 Lactic Acid 3.571 H* Calcium Phosphorus Magnesium Total Bilirubin AST ALT Alkaline Phosphatase Creatine Kinase 893 H Creatine Kinase Index 0.3 CK-MB (CK-2) 2.968 CK-MB (CK-2) Rel Index Troponin I < 0.02 D Total Protein Albumin TSH 06/30/16 06/30/16 06/30/16 10:00 11:20 13:00 WBC RBC Hgb Hct MCV MCHC RDW Plt Count MPV Sodium Potassium Chloride Carbon Dioxide Anion Gap BUN Creatinine Creat Clearance w eGFR Random Glucose Hemoglobin A1c % Lactic Acid 2.742 H* Calcium Phosphorus Magnesium Total Bilirubin AST ALT Alkaline Phosphatase Creatine Kinase Creatine Kinase Index CK-MB (CK-2) CK-MB (CK-2) Rel Index Cancelled Troponin I Total Protein Albumin TSH 2.16 06/30/16 07/01/16 07/01/16 18:00 05:35 05:35 WBC 20.2 H RBC 3.52 L Hgb 11.8 Hct 34.2 L MCV 97.1 H MCHC 34.6 RDW 14.2 Plt Count 184 MPV 9.8 Sodium 142 Potassium 3.8 Chloride 105 Carbon Dioxide 27 Anion Gap 10 BUN 10 D Creatinine 0.8 D Creat Clearance w eGFR > 60 Random Glucose 113 H Hemoglobin A1c % Lactic Acid 2.873 H* Calcium 8.4 L Phosphorus 1.7 L D Magnesium 2.3 Total Bilirubin 0.6 D AST 32 D ALT 53 Alkaline Phosphatase 80 Creatine Kinase 535 H D Creatine Kinase Index 0.5 CK-MB (CK-2) 2.679 CK-MB (CK-2) Rel Index Troponin I < 0.02 Total Protein 6.1 L Albumin 3.1 L D TSH 07/01/16 07/01/16 05:35 05:35 WBC RBC Hgb Hct MCV MCHC RDW Plt Count MPV Sodium Potassium Chloride Carbon Dioxide Anion Gap BUN Creatinine Creat Clearance w eGFR Random Glucose Hemoglobin A1c % Lactic Acid 0.708 Calcium Phosphorus Magnesium Total Bilirubin AST ALT Alkaline Phosphatase Creatine Kinase Creatine Kinase Index CK-MB (CK-2) CK-MB (CK-2) Rel Index Cancelled Troponin I Total Protein Albumin TSH Active Medications Generic Name Dose Route Start Last Admin Trade Name Freq PRN Reason Stop Dose Admin Acetaminophen 650 mg 06/30/16 02:23 07/01/16 06:20 Tylenol - PO 650 mg Q4H PRN Administration FEVER OR PAIN Albuterol Sulfate 1 amp 06/30/16 03:44 Ventolin 0.083% Nebulizer Soln - NEB Q4H PRN SHORT OF BREATH/WHEEZING Albuterol/Ipratropium 1 amp 06/30/16 06:04 07/01/16 06:53 Duoneb - NEB 1 amp QIDR FLOWER Administration Atorvastatin Calcium 10 mg 06/30/16 22:00 06/30/16 21:35 Lipitor - PO 10 mg HS FLOWER Administration Azithromycin 500 mg 07/01/16 10:00 Zithromax 500mg Ivpb (Pre-Docked) IVPB DAILY FLOWER Ceftriaxone Sodium 1 gm 07/01/16 10:00 Rocephin 1gm Ivpb (Pre-Docked) IVPB DAILY FLOWER Heparin Sodium (Porcine) 5,000 unit 06/30/16 06:00 07/01/16 06:12 Heparin - SQ 5,000 unit TID FLOWER Administration Sodium Chloride 1,000 mls @ 100 mls/hr 06/30/16 02:30 07/01/16 06:13 Normal Saline - IV 100 mls/hr ASDIR FLOWER Administration Morphine Sulfate 2 mg 07/01/16 06:29 Morphine Injection - IVPUSH Q4H PRN PAIN Nicotine 14 mg 06/30/16 10:00 07/01/16 09:35 Nicoderm Patch - TD Not Given DAILY FLOWER Tramadol HCl 50 mg 06/30/16 10:45 Ultram - PO Q6H PRN PAIN 06/30/2016 CT chest showed Findings consistent with consolidation/pneumonia mainly in the left upper lobe. 06/30/2016: CXR: Left Parahilar consolidation with air bronchograms EKG: Sinus tachycardia with T wave inversion in I, AVL, V4, V5, V6, minimal ST elevation or early repolarization in leads V1, V2, v3, qwaves in lead v1, v2 ASSESSMENT/PLAN: Patient is a 60 year old male with no significant past medical history of presented to the ED with complaint of chest pain, fever, cough was found to have left mid-lung infiltrates, consolidation and ekg abnormalities. # Chest pain likely due to costochondritis Overnight, complained of chest pain. Stat EKG was done which was unchanged from prior readings. Troponin was reordered which was negative. Chest pain resolved with IV Morphine. Ruled out ACS IV Morphine 1mg Q4H PRN Tramadol PRN for pain. Echo Normal without any pericardial effusion Atorvastatin 10mg HS Cardiology consult appreciated Needs outpatient stress test. # Severe Sepsis from community acquired pneumonia- Resolving ON admission: CXR Left Parahilar consolidation with air bronchograms CT chest showed Findings consistent with consolidation/pneumonia mainly in the left upper lobe. Admitted in Telemetry for continuous cardiac monitoring IV NS @ 75 mls/hr IV Ceftriaxone and IV Azithromycin Duoneb q6h Sputum culture Urine for legionella Albuterol PRN Oxygen PRN Lactic acidosis resolved after IV hydration and antibiotics. # Pre-diabetic: HbA1c 6 Diet and exercise counseling. # Hypophosphatemia: Phophorus: 1.7, repleted. # Hypomagnesemia- Resolved Mg 1.7 repleted Magnesium sulfate 1gm once # Smoking cessation R/O COPD (Needs PFT as outpatient) since patient has been a smoker for more than 30 years Nicotine patch # Prophylaxis: For DVT SCD For GI: Not indicated # FEN IV NS @ 75 mls/hr fluid Electrolytes: repleted and to be repeated now. Cardiac diet # Disposition: admit to telemetry. Duration of stay unknown. Illness, Investigation and Plan of care explained to the patient. He verbalized understanding. Case seen and discussed with Dr. Morin. Visit type - Emergency Visit Emergency Visit: Yes ED Registration Date: 06/30/16 Care time: The patient presented to the Emergency Department on the above date and was hospitalized for further evaluation of their emergent condition. - New Patient This patient is new to me today: No - Critical Care Critical Care patient: No - Discharge Referral Referred to [facility] Med P.C.: No
[2016-07-01 10:20] LABS: PLATELET ESTIMATE ADEQUATE (NORMAL)
[2016-07-01] MEDS: cefTRIAXone 1 GM/50 ML BAG (PRE-DOCKED) IVPB SCH (10:21)
[2016-07-01] MEDS: AZITHROMYCIN IVPB 500 MG/250 ML D5W PRE-DOCKED IVPB SCH (10:21)
--- NOTE | 2016-07-01 11:03 | PN ---
Progress Note, Physician History of Present Illness: Some mild CP and dyspnea this AM Tele: NSR at 80s - Current Medication List Current Medications: Active Medications Acetaminophen (Tylenol -) 650 mg PO Q4H PRN PRN Reason: FEVER OR PAIN Last Admin: 07/01/16 06:20 Dose: 650 mg Albuterol Sulfate (Ventolin 0.083% Nebulizer Soln -) 1 amp NEB Q4H PRN PRN Reason: SHORT OF BREATH/WHEEZING Albuterol/Ipratropium (Duoneb -) 1 amp NEB QIDR [facility] Last Admin: 07/01/16 06:53 Dose: 1 amp Atorvastatin Calcium (Lipitor -) 10 mg PO HS [facility] Last Admin: 06/30/16 21:35 Dose: 10 mg Azithromycin (Zithromax 500mg Ivpb (Pre-Docked)) 500 mg IVPB DAILY [facility] Last Admin: 07/01/16 10:21 Dose: 500 mg Ceftriaxone Sodium (Rocephin 1gm Ivpb (Pre-Docked)) 1 gm IVPB DAILY [facility] Last Admin: 07/01/16 10:21 Dose: 1 gm Heparin Sodium (Porcine) (Heparin -) 5,000 unit SQ TID [facility] Last Admin: 07/01/16 06:12 Dose: 5,000 unit Sodium Chloride (Normal Saline -) 1,000 mls @ 100 mls/hr IV ASDIR [facility] Last Admin: 07/01/16 06:13 Dose: 100 mls/hr Morphine Sulfate (Morphine Injection -) 2 mg IVPUSH Q4H PRN PRN Reason: PAIN Nicotine (Nicoderm Patch -) 14 mg TD DAILY [facility] Last Admin: 07/01/16 09:35 Dose: Not Given Tramadol HCl (Ultram -) 50 mg PO Q6H PRN PRN Reason: PAIN - Objective Vital Signs: Vital Signs Temperature 100 F H 07/01/16 06:00 Pulse Rate 96 H 07/01/16 06:00 Respiratory Rate 22 07/01/16 06:00 Blood Pressure 148/87 07/01/16 06:00 O2 Sat by Pulse Oximetry (%) 96 06/30/16 22:00 Constitutional: Yes: No Distress Eyes: Yes: WNL HENT: Yes: WNL Neck: Yes: WNL Cardiovascular: Yes: Regular Rate and Rhythm Respiratory: Yes: WNL Edema: No Labs: CBC, BMP 07/01/16 05:35 07/01/16 05:35 INR, PTT INR 1.14 (0.82-1.09) 06/30/16 06:05 Assessment/Plan a/p: 60 m no sig pmhx here with sob, cp. sob, pna: -no signs chf, likely due to pna -can check echo -cont abx cp: -atypical, pleuritic, seems related to PNA, no signs acs -trop neg x2 -check echo -monitor for resolution of cp as pna resolves umesh: -likely 2/2 infection, cont ivfs, monitor cr smoking: -tobacco cessation
--- NOTE | 2016-07-01 11:34 | PN ---
Teaching Attending Note Name of Resident: Shantelle Ziegler ATTENDING PHYSICIAN STATEMENT I saw and evaluated the patient. I reviewed the resident's note and discussed the case with the resident. I agree with the resident's findings and plan as documented. SUBJECTIVE: cp last night . given morphine.now CP has almost resolved. no SOB. OBJECTIVE: NAD CV: RRR lungs no crackles heard ext: no edema Abd: soft < NT, ND MS : minimal TTP over L sided cp uma over costocondral junction ASSESSMENT AND PLAN: 60 y/o man with no medical f/u wo presented with L sided CP and was found to have L sided CAP and sepsis 1- Severe sepsis, due to L sided CAP. had fever but his lactic acid has improved - cont ceftriaxone and azithro( day 2 ) - follow blood cx - U legioela , pneumococcal and plasma mycoplasma IgM abs pending - decrease rate of IVF 2- L sided CP : MS in etiology , likely costochonderitis vs pleuritic - dc morphine that was added last night - cont tramadol - no signs of acute ischemia on EKG. - no pericardial effusion on Echo . 3- MARYANNE : due to cvolume depletionand sepsis . - improved. cont lower rate of IVF 4- HLOC
[2016-07-01] MEDS ORDERED: SODIUM CHLORIDE 1,000 ML IV SCH (12:00)
--- NOTE | 2016-07-01 12:22 | PN ---
Physical Exam: SUBJECTIVE: Patient seen and examined OBJECTIVE: Vital Signs Period Temp Pulse Resp BP Sys/Madden Pulse Ox Last 24 Hr 97.7 F-100 F 87-114 20-22 126-162/74-95 96-99 GENERAL: The patient is awake, alert, and fully oriented, in no acute distress. HEAD: Normal with no signs of trauma. EYES: PERRL, extraocular movements intact, sclera anicteric, conjunctiva clear. No ptosis. ENT: Ears normal, nares patent, oropharynx clear without exudates, moist mucous membranes. NECK: Trachea midline, full range of motion, supple. LUNGS: Breath sounds equal, clear to auscultation bilaterally, no wheezes, no crackles, no accessory muscle use. HEART: Regular rate and rhythm, S1, S2 without murmur, rub or gallop. ABDOMEN: Soft, nontender, nondistended, normoactive bowel sounds, no guarding, no rebound, no hepatosplenomegaly, no masses. EXTREMITIES: 2+ pulses, warm, well-perfused, no edema. NEUROLOGICAL: Cranial nerves II through XII grossly intact. Normal speech, gait not observed. PSYCH: Normal mood, normal affect. SKIN: Warm, dry, normal turgor, no rashes or lesions noted Laboratory Results - last 24 hr 06/30/16 06/30/16 06/30/16 04:06 13:00 18:00 WBC RBC Hgb Hct MCV MCHC RDW Plt Count MPV Neutrophils % Lymphocytes % Monocytes % Band Neutrophils Differential Comment Platelet Estimate Sodium Potassium Chloride Carbon Dioxide Anion Gap BUN Creatinine Creat Clearance w eGFR Random Glucose Hemoglobin A1c % 6.0 Lactic Acid 2.742 H* 2.873 H* Calcium Phosphorus Magnesium Total Bilirubin AST ALT Alkaline Phosphatase Creatine Kinase Creatine Kinase Index CK-MB (CK-2) CK-MB (CK-2) Rel Index Troponin I Total Protein Albumin 07/01/16 07/01/16 07/01/16 05:35 05:35 05:35 WBC 20.2 H RBC 3.52 L Hgb 11.8 Hct 34.2 L MCV 97.1 H MCHC 34.6 RDW 14.2 Plt Count 184 MPV 9.8 Neutrophils % 83.0 H Lymphocytes % 11.0 Monocytes % 2.0 L Band Neutrophils 4.0 Differential Comment Manual diff done Platelet Estimate Adequate Sodium 142 Potassium 3.8 Chloride 105 Carbon Dioxide 27 Anion Gap 10 BUN 10 D Creatinine 0.8 D Creat Clearance w eGFR > 60 Random Glucose 113 H Hemoglobin A1c % Lactic Acid 0.708 Calcium 8.4 L Phosphorus 1.7 L D Magnesium 2.3 Total Bilirubin 0.6 D AST 32 D ALT 53 Alkaline Phosphatase 80 Creatine Kinase 535 H D Creatine Kinase Index 0.5 CK-MB (CK-2) 2.679 CK-MB (CK-2) Rel Index Troponin I < 0.02 Total Protein 6.1 L Albumin 3.1 L D 07/01/16 05:35 WBC RBC Hgb Hct MCV MCHC RDW Plt Count MPV Neutrophils % Lymphocytes % Monocytes % Band Neutrophils Differential Comment Platelet Estimate Sodium Potassium Chloride Carbon Dioxide Anion Gap BUN Creatinine Creat Clearance w eGFR Random Glucose Hemoglobin A1c % Lactic Acid Calcium Phosphorus Magnesium Total Bilirubin AST ALT Alkaline Phosphatase Creatine Kinase Creatine Kinase Index CK-MB (CK-2) CK-MB (CK-2) Rel Index Cancelled Troponin I Total Protein Albumin Active Medications Generic Name Dose Route Start Last Admin Trade Name Freq PRN Reason Stop Dose Admin Acetaminophen 650 mg 06/30/16 02:23 07/01/16 06:20 Tylenol - PO 650 mg Q4H PRN Administration FEVER OR PAIN Albuterol Sulfate 1 amp 06/30/16 03:44 Ventolin 0.083% Nebulizer Soln - NEB Q4H PRN SHORT OF BREATH/WHEEZING Albuterol/Ipratropium 1 amp 06/30/16 06:04 07/01/16 06:53 Duoneb - NEB 1 amp QIDR [facility] Administration Atorvastatin Calcium 10 mg 06/30/16 22:00 06/30/16 21:35 Lipitor - PO 10 mg HS [facility] Administration Azithromycin 500 mg 07/01/16 10:00 07/01/16 10:21 Zithromax 500mg Ivpb (Pre-Docked) IVPB 500 mg DAILY [facility] Administration Ceftriaxone Sodium 1 gm 07/01/16 10:00 07/01/16 10:21 Rocephin 1gm Ivpb (Pre-Docked) IVPB 1 gm DAILY [facility] Administration Heparin Sodium (Porcine) 5,000 unit 06/30/16 06:00 07/01/16 06:12 Heparin - SQ 5,000 unit TID [facility] Administration Sodium Chloride 1,000 mls @ 75 mls/hr 07/01/16 12:00 Normal Saline - IV ASDIR [facility] Nicotine 14 mg 06/30/16 10:00 07/01/16 09:35 Nicoderm Patch - TD Not Given DAILY [facility] Tramadol HCl 50 mg 06/30/16 10:45 Ultram - PO Q6H PRN PAIN ASSESSMENT/PLAN:
[2016-07-01] MEDS ORDERED: amLODIPine BESYLATE 5 MG TABLET (FP) PO ONE (19:01)
[2016-07-01] MEDS: ATORVASTATIN CA 10 MG TABLET (FP) PO SCH (21:29)
[2016-07-02] MEDS: ALBUTEROL SO4 2.5/IPRATROPIUM 0.5 INH SOL 3 ML VIAL.NEB. NEB SCH ×6 (00:16→23:35)
[2016-07-02] MEDS: HEPARIN NA (PORCINE) 5,000 UNITS/ML 1ML VIAL SQ SCH ×3 (06:22→21:16)
[2016-07-02 07:09] LABS: BASOPHIL 0.9 % (0-2.0); EOSINOPHIL 0.8 % (0-4.5); MCH 33.4 pg (25.7-33.7); MCHC 34.5 g/dl (32.0-35.9); MEAN CELL VOLUME 96.9 fl (80-96); MEAN PLT VOLUME 10.3 fl (7.5-11.1); NEUTROPHILS 78.6 % (42.8-82.8); PLATELET COUNT 205 K/MM3 (134-434); RDW 13.6 % (11.9-15.9); WHITE BLOOD COUNT 16.6 K/mm3 (4.0-10.0)
[2016-07-02 07:25] LABS: CALCIUM 8.8 mg/dL (8.5-10.1); COCKROFT - GAULT 96.38; CREATININE 0.9 mg/dL (0.7-1.3); MAGNESIUM 2.2 mg/dL (1.8-2.4); PHOSPHOROUS 2.6 mg/dL (2.5-4.9)
[2016-07-02] MEDS ORDERED: PT OWN MED DRAWER 7, Y5N ONE (09:55)
[2016-07-02] MEDS ORDERED: amLODIPine BESYLATE 5 MG TABLET (FP) PO SCH (10:00)
[2016-07-02] MEDS: ASPIRIN COATED 81 MG TABLET.EC PO SCH (10:36)
[2016-07-02] MEDS: cefTRIAXone 1 GM/50 ML BAG (PRE-DOCKED) IVPB SCH (10:37)
[2016-07-02] MEDS: AZITHROMYCIN IVPB 500 MG/250 ML D5W PRE-DOCKED IVPB SCH (10:37)
[2016-07-02] MEDS: NICOTINE 14 MG/24 HOURS TOPICAL PATCH TD SCH (10:37)
[2016-07-02] MEDS: METOPROLOL SUCCINATE 25 MG TAB.SR.24H (FP) PO SCH (10:37)
--- NOTE | 2016-07-02 10:41 | EKG ---
Test Reason : Blood Pressure : / mmHG Vent. Rate : 095 BPM Atrial Rate : 095 BPM P-R Int : 152 ms QRS Dur : 106 ms QT Int : 358 ms P-R-T Axes : 056 011 137 degrees QTc Int : 449 ms NORMAL SINUS RHYTHM POSSIBLE LEFT ATRIAL ENLARGEMENT T WAVE ABNORMALITY, CONSIDER LATERAL ISCHEMIA NONSPECIFIC ST AND T WAVE ABNORMALITY ABNORMAL ECG Confirmed by MD MARVA, CANDICE ([id number]) on 07/02/2016 10:40:34 AM Referred By: BRITTANY YOUSIF Confirmed By:CANDICE DURHAM MD
[2016-07-02] MEDS: ACETAMINOPHEN 325 MG TABLET (FP) PO PRN ×2 (11:21→21:16)
--- NOTE | 2016-07-02 11:49 | PN ---
Progress Note, Physician History of Present Illness: No CV complaints Tele:Afib with RVR on 06/29 NSR this AM No palpitations - Current Medication List Current Medications: Active Medications Acetaminophen (Tylenol -) 650 mg PO Q4H PRN PRN Reason: FEVER OR PAIN Last Admin: 07/02/16 11:21 Dose: 650 mg Albuterol Sulfate (Ventolin 0.083% Nebulizer Soln -) 1 amp NEB Q4H PRN PRN Reason: SHORT OF BREATH/WHEEZING Albuterol/Ipratropium (Duoneb -) 1 amp NEB QIDR [facility] Last Admin: 07/02/16 11:38 Dose: 1 amp Aspirin (Ecotrin -) 81 mg PO DAILY [facility] Last Admin: 07/02/16 10:36 Dose: 81 mg Atorvastatin Calcium (Lipitor -) 10 mg PO HS [facility] Last Admin: 07/01/16 21:29 Dose: 10 mg Azithromycin (Zithromax 500mg Ivpb (Pre-Docked)) 500 mg IVPB DAILY [facility] Last Admin: 07/02/16 10:37 Dose: 500 mg Ceftriaxone Sodium (Rocephin 1gm Ivpb (Pre-Docked)) 1 gm IVPB DAILY [facility] Last Admin: 07/02/16 10:37 Dose: 1 gm Heparin Sodium (Porcine) (Heparin -) 5,000 unit SQ TID [facility] Last Admin: 07/02/16 06:22 Dose: 5,000 unit Sodium Chloride (Normal Saline -) 1,000 mls @ 75 mls/hr IV ASDIR [facility] Last Admin: 07/01/16 10:00 Dose: 75 mls/hr Metoprolol Succinate (Toprol Xl -) 25 mg PO DAILY [facility] Last Admin: 07/02/16 10:37 Dose: 25 mg Morphine Sulfate (Morphine Injection -) 1 mg IVPUSH Q4H PRN PRN Reason: PAIN Nicotine (Nicoderm Patch -) 14 mg TD DAILY [facility] Last Admin: 07/02/16 10:37 Dose: Not Given Tramadol HCl (Ultram -) 50 mg PO Q6H PRN PRN Reason: PAIN Last Admin: 07/01/16 16:44 Dose: 50 mg - Objective Vital Signs: Vital Signs Temperature 99.0 F 07/02/16 06:00 Pulse Rate 96 H 07/02/16 06:00 Respiratory Rate 20 07/02/16 06:00 Blood Pressure 157/104 07/02/16 06:00 O2 Sat by Pulse Oximetry (%) 96 07/01/16 20:42 Constitutional: Yes: Calm Eyes: Yes: WNL HENT: Yes: WNL Neck: Yes: WNL Cardiovascular: Yes: WNL Respiratory: Yes: WNL Gastrointestinal: Yes: WNL Extremities: Yes: WNL Edema: No Labs: CBC, BMP 07/02/16 05:35 07/02/16 05:35 INR, PTT INR 1.14 (0.82-1.09) 06/30/16 06:05 Assessment/Plan a/p: 60 m no sig pmhx here with sob, cp. Afib on 06/29 on Tet -PAF on 06/29/2016 at 9:30PM -Low [id number] = 0 -Asa 81mg daily and metoprolol succinate 25mg PO daily -Echo on 06/30/2016 shows normal biventricular size and function. ?diastolic dysf. sob, pna: -no signs chf, likely due to pna -cont abx cp: -atypical, pleuritic, seems related to PNA, no signs acs -trop neg x2 -Preserved LV function -monitor for resolution of cp as pna resolves umesh: -likely 2/2 infection, cont ivfs, monitor cr smoking: -tobacco cessation
--- NOTE | 2016-07-02 13:30 | PN ---
Progress Note (short form) - Note Progress Note: Subjective: has no CP , has no SOB. feels much better Objective: Vital Signs: Last Vital Signs Temp Pulse Resp BP Pulse Ox 100 F H 103 H 20 156/90 96 07/02/16 10:00 07/02/16 10:00 07/02/16 10:00 07/02/16 10:00 07/01/16 20:42 Laboratory Results - last 24 hr 06/30/16 07/02/16 07/02/16 11:20 05:35 05:35 WBC 16.6 H RBC 3.60 L Hgb 12.0 Hct 34.9 L MCV 96.9 H MCHC 34.5 RDW 13.6 Plt Count 205 MPV 10.3 Neutrophils % 78.6 Lymphocytes % 15.8 D Monocytes % 3.9 D Eosinophils % 0.8 D Basophils % 0.9 D Sodium 141 Potassium 3.8 Chloride 103 Carbon Dioxide 27 Anion Gap 11 BUN 7 D Creatinine 0.9 Random Glucose 113 H Calcium 8.8 Phosphorus 2.6 D Magnesium 2.2 ALEJANDRO Screen Negative Physical Exam: NAD CV: RRR lungs no crackles heard ext: no edema Abd: soft < NT, ND MS :NO TTP over L sided chest today ASSESSMENT AND PLAN: 60 y/o man with no medical f/u wo presented with L sided CP and was found to have L sided CAP and sepsis 1- Severe sepsis, due to L sided CAP. HAs low grade fevr , but leukocytosis improved. - cont ceftriaxone and azithro( day 3 ) . will not change Abx yet - follow blood cx ( NGTD) - U legioela , pneumococcal and plasma mycoplasma IgM abs pending - dc IVF 2- L sided CP : MS in etiology, or likely pleuritic due to PNA - cont tramadol - no signs of acute ischemia on EKG. - no pericardial effusion on Echo . 3- P Afib: on tele , he continues to have episodes of tachycardia in 120s-140s. Looks like A fib. repeat EKG today with sinus rhythm and LVH , but no a fib - Dc amlodipine , and start Toprol 25 daily , for rate control . up-titrate as needed - [id number] score of 1( HTN) ---> 0.6% yearly risk of stroke. discussed with patient this risk, and also offered him low dose aspirin VS full AC. He would like to think about it . I will place him on ASA in mean time. - will d/w card tomorrow 4- HTN: no hx but in house he had sBP of 180s , and diastolic dysfunction on Echo , with signs of LVH on EKG, so probably he had it undiagnosed before. s - d/c norvasc ( started yesterday) - add toprol 5- MARYANNE : due to volume depletion and sepsis. HLOC Visit type - Emergency Visit Emergency Visit: Yes ED Registration Date: 06/30/16 Care time: The patient presented to the Emergency Department on the above date and was hospitalized for further evaluation of their emergent condition. - New Patient This patient is new to me today: No - Critical Care Critical Care patient: No
[2016-07-02] MEDS: ATORVASTATIN CA 10 MG TABLET (FP) PO SCH (21:16)
[2016-07-03] MEDS: HEPARIN NA (PORCINE) 5,000 UNITS/ML 1ML VIAL SQ SCH (05:51)
[2016-07-03] MEDS: ALBUTEROL SO4 2.5/IPRATROPIUM 0.5 INH SOL 3 ML VIAL.NEB. NEB SCH ×3 (06:44→17:41)
[2016-07-03 07:34] LABS: BASOPHIL 1.4 % (0-2.0); EOSINOPHIL 1.3 % (0-4.5); MCH 33.1 pg (25.7-33.7); MCHC 34.1 g/dl (32.0-35.9); MEAN CELL VOLUME 97.1 fl (80-96); MEAN PLT VOLUME 10.5 fl (7.5-11.1); NEUTROPHILS 69.3 % (42.8-82.8); PLATELET COUNT 233 K/MM3 (134-434); RDW 13.7 % (11.9-15.9); WHITE BLOOD COUNT 11.8 K/mm3 (4.0-10.0)
[2016-07-03] MEDS: NICOTINE 14 MG/24 HOURS TOPICAL PATCH TD SCH ×2 (09:00→09:04)
[2016-07-03] MEDS: AZITHROMYCIN IVPB 500 MG/250 ML D5W PRE-DOCKED IVPB SCH (09:01)
[2016-07-03] MEDS: METOPROLOL SUCCINATE 25 MG TAB.SR.24H (FP) PO SCH (09:01)
[2016-07-03] MEDS: cefTRIAXone 1 GM/50 ML BAG (PRE-DOCKED) IVPB SCH (09:01)
[2016-07-03] MEDS: ASPIRIN COATED 81 MG TABLET.EC PO SCH (09:01)
--- NOTE | 2016-07-03 09:30 | PN ---
Progress Note, Physician Chief Complaint: sob History of Present Illness: no more sob--much improved no cp, palpit, leg swelling - Current Medication List Current Medications: Active Medications Acetaminophen (Tylenol -) 650 mg PO Q4H PRN PRN Reason: FEVER OR PAIN Last Admin: 07/02/16 21:16 Dose: 650 mg Albuterol Sulfate (Ventolin 0.083% Nebulizer Soln -) 1 amp NEB Q4H PRN PRN Reason: SHORT OF BREATH/WHEEZING Albuterol/Ipratropium (Duoneb -) 1 amp NEB QIDR [facility] Last Admin: 07/03/16 06:44 Dose: 1 amp Aspirin (Ecotrin -) 81 mg PO DAILY [facility] Last Admin: 07/03/16 09:01 Dose: 81 mg Atorvastatin Calcium (Lipitor -) 10 mg PO HS [facility] Last Admin: 07/02/16 21:16 Dose: 10 mg Azithromycin (Zithromax 500mg Ivpb (Pre-Docked)) 500 mg IVPB DAILY [facility] Last Admin: 07/03/16 09:01 Dose: 500 mg Ceftriaxone Sodium (Rocephin 1gm Ivpb (Pre-Docked)) 1 gm IVPB DAILY [facility] Last Admin: 07/03/16 09:01 Dose: 1 gm Heparin Sodium (Porcine) (Heparin -) 5,000 unit SQ TID [facility] Last Admin: 07/03/16 05:51 Dose: 5,000 unit Metoprolol Succinate (Toprol Xl -) 50 mg PO DAILY [facility] Morphine Sulfate (Morphine Injection -) 1 mg IVPUSH Q4H PRN PRN Reason: PAIN Nicotine (Nicoderm Patch -) 14 mg TD DAILY [facility] Last Admin: 07/03/16 09:04 Dose: Not Given Tramadol HCl (Ultram -) 50 mg PO Q6H PRN PRN Reason: PAIN Last Admin: 07/01/16 16:44 Dose: 50 mg - Objective Vital Signs: Vital Signs Temperature 98.7 F 07/03/16 08:11 Pulse Rate 89 07/03/16 08:11 Respiratory Rate 20 07/03/16 08:11 Blood Pressure 162/92 07/03/16 08:11 O2 Sat by Pulse Oximetry (%) 98 07/02/16 20:00 Constitutional: Yes: Well Nourished, No Distress, Moderate Distress Cardiovascular: Yes: Regular Rate and Rhythm, S1, S2. No: Gallop, Murmur Respiratory: Yes: Regular, CTA Bilaterally (decr slightly R base). No: Accessory Muscle Use, Rales, Wheezes Extremities: No: Cold Edema: No Neurological: Yes: Alert, Oriented Psychiatric: No: Agitated Labs: CBC, BMP 07/03/16 05:35 07/02/16 05:35 INR, PTT INR 1.14 (0.82-1.09) 06/30/16 06:05 - ....Imaging EKG: Other (tele: NSR) Assessment/Plan Echo 06/28 (here): nl LV and RV fxn; nl LA; mild-mod MR a/p: 60 m no sig pmhx here with sob, cp. Afib on 06/29 on Tet -PAF on 06/29/2016 at 9:30PM -[id number] = 1 -Echo unremarkable -tx'd here with asa 81mg daily and metoprolol succinate 50 -d/w'd pt in detail R/B of AC vs ASA incl estimated risks from the literature of pathological serious bleeding on AC vs ASA and CVA risks; -he would like to maximize CVA prevention, denies h/o PUD/GIB or hi risk of trauma at his work, no etoh abuse or drugs -rec we start eliquis 5 bid -pt has no pmd and no medical insurance but intends to d/w SW -will plan to refer to EP for opinion on AC in this setting (brief, transient AF with active PNA) vs possibly loop recorder implant and hold AC later if no AF seen -pt agrees to this plan, verbalizes understanding of above discussion, and the importance to f/u with me after discharge pna: -cont abx per primary team cp, abnormal ecg: -atypical, pleuritic, seems related to PNA, no signs acs -trop neg x 4 -EKGs x 3 unchanged here: LVH with repol abnormalities -Preserved LV function -sx resolved -no indication for stress testing at present, unless sx's change umesh: -likely 2/2 infection -resolved with IVF smoking: -tobacco cessation counselling provided re: CV risks
[2016-07-03] MEDS ORDERED: METOPROLOL SUCCINATE 50 MG TAB.SR.24H (FP) PO SCH (10:00)
[2016-07-03 10:05] LABS: THYROID STIMULATING HORMONE 7.13 uIU/ml (0.358-3.74)
[2016-07-03] MEDS ORDERED: METOPROLOL SUCCINATE 25 MG TAB.SR.24H (FP) PO ONE (12:00)
--- NOTE | 2016-07-03 14:00 | PN ---
Teaching Attending Note Name of Resident: Shantelle Ziegler ATTENDING PHYSICIAN STATEMENT I saw and evaluated the patient. I reviewed the resident's note and discussed the case with the resident. I agree with the resident's findings and plan as documented. SUBJECTIVE: no cp , no fever or chills , no palpitations . OBJECTIVE: NAD CV: RRR lungs no crackles heard ext: no edema MS :NO TTP over L sided chest ASSESSMENT AND PLAN: 60 y/o man with no medical f/u who presented with L sided CP and was found to have L sided CAP and sepsis 1- Severe sepsis, due to L sided CAP. improved . leuksoyctsis improved - cont ceftriaxone and azithro( day 4 ) . - follow blood cx ( NGTD) - U legioela , pneumococcal and plasma mycoplasma IgM abs pending 2- L sided CP : MS in etiology, or likely pleuritic due to PNA - cont tramadol 3- P Afib: tele reviewed again . the only episode was 06/29 - toprol , increase to 50 today - [id number] score of 1---> 0.6% yearly risk of stroke. - pt chose full AC. eliquis 5 BID 4- HTN: increase toprol to 50 . 5- MARYANNE: due to volume depletion and sepsis. resolved. HLOC anticipate dc tomorrow will refer to [facility]
--- NOTE | 2016-07-03 17:07 | PN ---
Physical Exam: SUBJECTIVE: Patient seen and examined at bed side this morning. No complaints. Yesterday, he had mild left sided chest pain but today it has resolved. Denies sob, cough, palpitation, abdominal pain, nausea or vomiting. Bowel/Bladder habit normal. Was able to walk across the hallway without any problems. OBJECTIVE: Vital Signs Period Temp Pulse Resp BP Sys/Madden Pulse Ox Last 24 Hr 98.7 F-99.9 F 82-98 20-20 126-162/84-98 93-98 GENERAL: The patient is mildly obese, awake, alert, and fully oriented, in no acute distress. HEAD: Normal with no signs of trauma. EYES: EOM intact, no pallor or icterus. ENT: Ears normal, moist mucous membranes. NECK: Trachea midline, full range of motion, supple. LUNGS: Breath sounds equal, occasional wheezes, bibasilar crackles, no accessory muscle use. No tenderness on palpation over the left side of the chest. HEART: Regular rate and rhythm, S1, S2 without murmur. ABDOMEN: Soft, nontender, nondistended, normoactive bowel sounds, no guarding, no rebound, no hepatosplenomegaly, no masses. EXTREMITIES: 2+ pulses, warm, well-perfused, no edema. NEUROLOGICAL: Cranial nerves II through XII grossly intact. Normal speech, gait not observed. PSYCH: Normal mood, normal affect. SKIN: Warm, dry, normal turgor, no rashes or lesions noted Laboratory Results - last 24 hr 07/02/16 07/03/16 07/03/16 05:35 05:35 05:35 WBC 11.8 H RBC 3.52 L Hgb 11.7 Hct 34.2 L MCV 97.1 H MCHC 34.1 RDW 13.7 Plt Count 233 MPV 10.5 Neutrophils % 69.3 Lymphocytes % 21.4 D Monocytes % 6.6 Eosinophils % 1.3 Basophils % 1.4 TSH 7.13 H D Cancelled Active Medications Generic Name Dose Route Start Last Admin Trade Name Freq PRN Reason Stop Dose Admin Acetaminophen 650 mg 06/30/16 02:23 07/02/16 21:16 Tylenol - PO 650 mg Q4H PRN Administration FEVER OR PAIN Albuterol Sulfate 1 amp 06/30/16 03:44 Ventolin 0.083% Nebulizer Soln - NEB Q4H PRN SHORT OF BREATH/WHEEZING Albuterol/Ipratropium 1 amp 06/30/16 06:04 07/03/16 11:05 Duoneb - NEB 1 amp QIDR [facility] Administration Apixaban 5 mg 07/03/16 22:00 Eliquis - PO BID [facility] Atorvastatin Calcium 10 mg 06/30/16 22:00 07/02/16 21:16 Lipitor - PO 10 mg HS [facility] Administration Azithromycin 500 mg 07/01/16 10:00 07/03/16 09:01 Zithromax 500mg Ivpb (Pre-Docked) IVPB 500 mg DAILY [facility] Administration Ceftriaxone Sodium 1 gm 07/01/16 10:00 07/03/16 09:01 Rocephin 1gm Ivpb (Pre-Docked) IVPB 1 gm DAILY [facility] Administration Metoprolol Succinate 50 mg 07/04/16 10:00 Toprol Xl - PO DAILY [facility] Morphine Sulfate 1 mg 07/01/16 17:09 Morphine Injection - IVPUSH Q4H PRN PAIN Nicotine 14 mg 06/30/16 10:00 07/03/16 09:04 Nicoderm Patch - TD Not Given DAILY [facility] Tramadol HCl 50 mg 06/30/16 10:45 07/01/16 16:44 Ultram - PO 50 mg Q6H PRN Administration PAIN 06/30/2016 CT chest showed Findings consistent with consolidation/pneumonia mainly in the left upper lobe. 06/30/2016: CXR: Left Parahilar consolidation with air bronchograms EKG: Sinus tachycardia with T wave inversion in I, AVL, V4, V5, V6, minimal ST elevation or early repolarization in leads V1, V2, v3, qwaves in lead v1, v2 ASSESSMENT/PLAN: Patient is a 60 year old male with no significant past medical history of presented to the ED with complaint of chest pain, fever, cough was found to have left mid-lung infiltrates, consolidation and ekg abnormalities. # Severe Sepsis from community acquired pneumonia- Resolving ON admission: CXR Left Parahilar consolidation with air bronchograms CT chest showed Findings consistent with consolidation/pneumonia mainly in the left upper lobe. Admitted in Telemetry for continuous cardiac monitoring IV NS @ 75 mls/hr Leukocytosis 16.6--->11.8 IV Ceftriaxone and IV Azithromycin Day 3 Duoneb q6h Urine for legionella Negative Albuterol PRN Oxygen PRN Lactic acidosis resolved after IV hydration and antibiotics. # Parosyxsmal Atrial fibrillation Seen on the monitor 06/29 on Tetemetry CHADsVASc score 1 On Elliquis 5mg PO BID # Chest pain likely due to costochondritis vs pain due to coughing Yesterday complained of mild left sided chest pain. Now it has resolved. No acute overnight events.. Chest pain resolved with IV Morphine. Ruled out ACS IV Morphine 1mg Q4H PRN Tramadol PRN for pain. Echo Normal without any pericardial effusion Atorvastatin 10mg HS Cardiology consult appreciated Needs outpatient stress test. # Possible Hypothyroidism vs Euthyroid syndrome TSH-7.13, Thyroid panel to repeat after his sepsis resolves. # Pre-diabetic: HbA1c 6 Diet and exercise counseling. # Hypophosphatemia: Resolved after it was repleted. # Hypomagnesemia- Resolved Repleted Magnesium and now resolved. # Smoking cessation R/O COPD (Needs PFT as outpatient) since patient has been a smoker for more than 30 years Nicotine patch # Prophylaxis: For DVT On Elliquis For GI: Not indicated # FEN Not on IV fluids. Electrolytes: repleted and to be repeated now. Cardiac diet # Disposition: admit to telemetry. Duration of stay unknown. Illness, Investigation and Plan of care explained to the patient. He verbalized understanding. Case seen and discussed with Dr. Morin. Visit type - Emergency Visit Emergency Visit: Yes ED Registration Date: 06/30/16 Care time: The patient presented to the Emergency Department on the above date and was hospitalized for further evaluation of their emergent condition. - New Patient This patient is new to me today: No - Critical Care Critical Care patient: No - Discharge Referral Referred to [facility] Med P.C.: No
[2016-07-03] MEDS: ATORVASTATIN CA 10 MG TABLET (FP) PO SCH (22:27)
[2016-07-03] MEDS: APIXABAN 5 MG TABLET PO SCH (22:27)
[2016-07-04] MEDS: ALBUTEROL SO4 2.5/IPRATROPIUM 0.5 INH SOL 3 ML VIAL.NEB. NEB SCH ×3 (06:20→11:00)
[2016-07-04 07:47] VITALS: BP 152/98; TEMP 99
[2016-07-04 07:49] LABS: MCH 33.7 pg (25.7-33.7); MCHC 34.7 g/dl (32.0-35.9); MEAN CELL VOLUME 97.2 fl (80-96); MEAN PLT VOLUME 9.7 fl (7.5-11.1); PLATELET COUNT 251 K/MM3 (134-434); RDW 13.6 % (11.9-15.9); WHITE BLOOD COUNT 10.9 K/mm3 (4.0-10.0)
--- NOTE | 2016-07-04 07:55 | PN ---
Physical Exam: SUBJECTIVE: Patient seen and examined OBJECTIVE: Vital Signs Period Temp Pulse Resp BP Sys/Madden Pulse Ox Last 24 Hr 98.7 F-99.9 F 77-98 20-20 144-162/88-109 93-95 GENERAL: The patient is awake, alert, and fully oriented, in no acute distress. HEAD: Normal with no signs of trauma. EYES: PERRL, extraocular movements intact, sclera anicteric, conjunctiva clear. No ptosis. ENT: Ears normal, nares patent, oropharynx clear without exudates, moist mucous membranes. NECK: Trachea midline, full range of motion, supple. LUNGS: Breath sounds equal, clear to auscultation bilaterally, no wheezes, no crackles, no accessory muscle use. HEART: Regular rate and rhythm, S1, S2 without murmur, rub or gallop. ABDOMEN: Soft, nontender, nondistended, normoactive bowel sounds, no guarding, no rebound, no hepatosplenomegaly, no masses. EXTREMITIES: 2+ pulses, warm, well-perfused, no edema. NEUROLOGICAL: Cranial nerves II through XII grossly intact. Normal speech, gait not observed. PSYCH: Normal mood, normal affect. SKIN: Warm, dry, normal turgor, no rashes or lesions noted Laboratory Results - last 24 hr 07/01/16 07/02/16 07/03/16 05:35 05:35 05:35 WBC 11.8 H RBC 3.52 L Hgb 11.7 Hct 34.2 L MCV 97.1 H MCHC 34.1 RDW 13.7 Plt Count 233 MPV 10.5 Neutrophils % 69.3 Lymphocytes % 21.4 D Monocytes % 6.6 Eosinophils % 1.3 Basophils % 1.4 TSH 7.13 H D M.pneumoniae IgM Titer <770 07/03/16 05:35 WBC RBC Hgb Hct MCV MCHC RDW Plt Count MPV Neutrophils % Lymphocytes % Monocytes % Eosinophils % Basophils % TSH Cancelled M.pneumoniae IgM Titer Active Medications Generic Name Dose Route Start Last Admin Trade Name Freq PRN Reason Stop Dose Admin Acetaminophen 650 mg 06/30/16 02:23 07/02/16 21:16 Tylenol - PO 650 mg Q4H PRN Administration FEVER OR PAIN Albuterol Sulfate 1 amp 06/30/16 03:44 Ventolin 0.083% Nebulizer Soln - NEB Q4H PRN SHORT OF BREATH/WHEEZING Albuterol/Ipratropium 1 amp 06/30/16 06:04 07/04/16 06:20 Duoneb - NEB 1 amp QIDR [facility] Administration Apixaban 5 mg 07/03/16 22:00 07/03/16 22:27 Eliquis - PO 5 mg BID [facility] Administration Atorvastatin Calcium 10 mg 06/30/16 22:00 07/03/16 22:27 Lipitor - PO 10 mg HS [facility] Administration Azithromycin 500 mg 07/01/16 10:00 07/03/16 09:01 Zithromax 500mg Ivpb (Pre-Docked) IVPB 500 mg DAILY [facility] Administration Ceftriaxone Sodium 1 gm 07/01/16 10:00 07/03/16 09:01 Rocephin 1gm Ivpb (Pre-Docked) IVPB 1 gm DAILY [facility] Administration Metoprolol Succinate 50 mg 07/04/16 10:00 Toprol Xl - PO DAILY [facility] Nicotine 14 mg 06/30/16 10:00 07/03/16 09:04 Nicoderm Patch - TD Not Given DAILY [facility] Tramadol HCl 50 mg 06/30/16 10:45 07/01/16 16:44 Ultram - PO 50 mg Q6H PRN Administration PAIN ASSESSMENT/PLAN:
[2016-07-04 08:25] LABS: CALCIUM 9.1 mg/dL (8.5-10.1); COCKROFT - GAULT 96.38; CREATININE 0.9 mg/dL (0.7-1.3)
[2016-07-04] MEDS ORDERED: METOPROLOL SUCCINATE 50 MG TAB.SR.24H (FP) PO SCH (10:00)
[2016-07-04] MEDS ORDERED: amLODIPine BESYLATE 5 MG TABLET (FP) PO SCH (10:00)
[2016-07-04] MEDS: NICOTINE 14 MG/24 HOURS TOPICAL PATCH TD SCH (11:20)
[2016-07-04] MEDS: APIXABAN 5 MG TABLET PO SCH (11:20)
[2016-07-04] MEDS: cefTRIAXone 1 GM/50 ML BAG (PRE-DOCKED) IVPB SCH (11:20)
[2016-07-04] MEDS: AZITHROMYCIN IVPB 500 MG/250 ML D5W PRE-DOCKED IVPB SCH (11:20)
[2016-07-04 11:39] VITALS: PULSE 83
--- NOTE | 2016-07-04 11:43 | PN ---
Progress Note (short form) - Note Progress Note: Chief Complaint: sob History of Present Illness: no more sob--much improved no cp, palpit, leg swelling Current Medications Acetaminophen (Tylenol -) 650 mg PO Q4H PRN PRN Reason: FEVER OR PAIN Last Admin: 07/02/16 21:16 Dose: 650 mg Albuterol Sulfate (Ventolin 0.083% Nebulizer Soln -) 1 amp NEB Q4H PRN PRN Reason: SHORT OF BREATH/WHEEZING Albuterol/Ipratropium (Duoneb -) 1 amp NEB QIDR [facility] Last Admin: 07/04/16 11:00 Dose: 1 amp Amlodipine Besylate (Norvasc -) 5 mg PO DAILY [facility] Last Admin: 07/04/16 11:19 Dose: 5 mg Apixaban (Eliquis -) 5 mg PO BID [facility] Last Admin: 07/04/16 11:20 Dose: 5 mg Atorvastatin Calcium (Lipitor -) 10 mg PO HS [facility] Last Admin: 07/03/16 22:27 Dose: 10 mg Azithromycin (Zithromax 500mg Ivpb (Pre-Docked)) 500 mg IVPB DAILY [facility] Last Admin: 07/04/16 11:20 Dose: 500 mg Ceftriaxone Sodium (Rocephin 1gm Ivpb (Pre-Docked)) 1 gm IVPB DAILY [facility] Last Admin: 07/04/16 11:20 Dose: 1 gm Metoprolol Succinate (Toprol Xl -) 50 mg PO DAILY [facility] Last Admin: 07/04/16 11:20 Dose: 50 mg Nicotine (Nicoderm Patch -) 14 mg TD DAILY [facility] Last Admin: 07/04/16 11:20 Dose: Not Given Tramadol HCl (Ultram -) 50 mg PO Q6H PRN PRN Reason: PAIN Last Admin: 07/01/16 16:44 Dose: 50 mg Vital Signs - 24 hr 07/03/16 07/03/16 07/03/16 14:15 17:00 20:00 Temperature 99.1 F 99.2 F Pulse Rate 98 H 81 Respiratory 20 20 Rate Blood Pressure 154/98 161/109 O2 Sat by Pulse 94 L Oximetry (%) 07/03/16 07/04/16 07/04/16 22:00 02:00 05:27 Temperature 99.9 F H 99.9 F H 98.8 F Pulse Rate 84 85 77 Respiratory 20 20 20 Rate Blood Pressure 156/88 151/89 144/101 O2 Sat by Pulse Oximetry (%) 07/04/16 07/04/16 07/04/16 07:46 07:47 08:00 Temperature 99 F Pulse Rate 85 82 Respiratory 20 20 Rate Blood Pressure 159/107 152/98 O2 Sat by Pulse 96 Oximetry (%) 07/04/16 10:05 Temperature Pulse Rate 83 Respiratory Rate Blood Pressure O2 Sat by Pulse 95 Oximetry (%) Intake & Output 07/02/16 07/03/16 07/04/16 07/05/16 07:59 07:59 07:59 07:59 Intake Total 1450 825 660 Output Total 700 500 Balance 750 325 660 Constitutional: Yes: Well Nourished, No Distress, Moderate Distress Cardiovascular: Yes: Regular Rate and Rhythm, S1, S2. No: Gallop, Murmur Respiratory: Yes: Regular, CTA Bilaterally (decr slightly R base). No: Accessory Muscle Use, Rales, Wheezes Extremities: No: Cold Edema: No Neurological: Yes: Alert, Oriented Psychiatric: No: Agitated Labs: CBC, BMP 07/04/16 05:40 07/04/16 05:40 Laboratory Tests 06/30/16 07/02/16 00:30 05:35 D-Dimer 238 H TSH 7.13 H D - ....Imaging EKG: Other (tele: NSR) Assessment/Plan Echo 06/28 (here): nl LV and RV fxn; nl LA; mild-mod MR a/p: 60 m no sig pmhx here with sob, cp. Afib on 06/29 on Tele -PAF on 06/29/2016 at 9:30PM -[id number] = 1 -Echo unremarkable -tx'd here with asa 81mg daily and metoprolol succinate 50 -d/w'd pt in detail R/B of AC vs ASA incl estimated risks from the literature of pathological serious bleeding on AC vs ASA and CVA risks; -he would like to maximize CVA prevention, denies h/o PUD/GIB or hi risk of trauma at his work, no etoh abuse or drugs, started on eliquis 5 bid -pt has no pmd and no medical insurance but intends to d/w SW re: cost. -will plan to refer to EP for opinion on AC in this setting (brief, transient AF with active PNA) vs possibly loop recorder implant and hold AC later if no AF seen -pt agrees to this plan, verbalizes understanding of above discussion, and the importance to f/u with Dr. Ngo after discharge - thyroid management per pmd. pna: -cont abx per primary team cp, abnormal ecg: -atypical, pleuritic, seems related to PNA, no signs acs -trop neg x 4 -EKGs x 3 unchanged here: LVH with repol abnormalities -Preserved LV function -sx resolved -no indication for stress testing at present, unless sx's change umesh: -likely 2/2 infection -resolved with IVF smoking: -tobacco cessation counselling provided re: CV risks HTN - first dose of norvasc and toprol 50 today, monitor for improvement.
--- NOTE | 2016-07-04 14:28 | PN ---
Teaching Attending Note Name of Resident: Shantelle Ziegler ATTENDING PHYSICIAN STATEMENT I saw and evaluated the patient. I reviewed the resident's note and discussed the case with the resident. I agree with the resident's findings and plan as documented. SUBJECTIVE: no pain, no SOB , no fever or chills. OBJECTIVE: NAD CV: RRR lungs no crackles heard ext: no edema MS :NO TTP over L sided chest ASSESSMENT AND PLAN: 60 y/o man with no medical f/u who presented with L sided CP and was found to have L sided CAP and sepsis 1- Severe sepsis, due to L sided CAP. improved . leuksoyctsis improved , almost normal - already received 4 days of azithro and ceftriaxone . will conitnue with vantin x 3 more days , and azithro x 1 more day - U legioela neg , pneumococcal neg 2- atypical L sided CP : resolved 3- P Afib: no more episodes since 06/29. [id number] score of 1 cont toprol 50 daily . has no insurance, can't afford the reduced prices of Bamatea ( 400 $ for 2 month supply of eliquis or xarelto) . he is wiling to start coumadin , but has no PCP to monitor his INR, he understands this is dangerous . discussed with him his options again,. Will start him on ASA 81 , until he has insuranc eand can afford NOACs. Advised to follow with [facility] where he can be started on coumadin 4- HTN: toprol and add norvasc due to persistent DBP > 100 5- MARYANNE: due to volume depletion and sepsis. resolved. Dc home . when has insurance will follow with Dr Jimena Ngo f/u with [facility] . number provided.
--- NOTE | 2016-07-04 19:52 | DS ---
Physical Exam: SUBJECTIVE: Patient seen and examined at bed side this morning. No complaints. Chest pain has resolved. Denies sob, cough, palpitation, abdominal pain, nausea or vomiting. Bowel/Bladder habit normal. Was able to walk across the hallway without any problems. OBJECTIVE: Vital Signs Period Temp Pulse Resp BP Sys/Madden Pulse Ox Last 24 Hr 98.8 F-99.9 F 77-85 20-20 144-159/88-107 94-96 PHYSICAL EXAM GENERAL: The patient is mildly obese, awake, alert, and fully oriented, in no acute distress. HEAD: Normal with no signs of trauma. EYES: EOM intact, no pallor or icterus. ENT: Ears normal, moist mucous membranes. NECK: Trachea midline, full range of motion, supple. LUNGS: Breath sounds equal, b/l lungs clear, no accessory muscle use. No tenderness on palpation over the left side of the chest. HEART: Regular rate and rhythm, S1, S2 without murmur. ABDOMEN: Soft, nontender, nondistended, normoactive bowel sounds, no guarding, no rebound, no hepatosplenomegaly, no masses. EXTREMITIES: 2+ pulses, warm, well-perfused, no edema. NEUROLOGICAL: Cranial nerves II through XII grossly intact. Normal speech, gait not observed. PSYCH: Normal mood, normal affect. SKIN: Warm, dry, normal turgor, no rashes or lesions noted LABS Laboratory Results - last 24 hr 07/01/16 07/04/16 07/04/16 05:35 05:40 05:40 WBC 10.9 H RBC 3.79 L Hgb 12.8 Hct 36.8 MCV 97.2 H MCHC 34.7 RDW 13.6 Plt Count 251 MPV 9.7 Sodium 140 Potassium 4.1 Chloride 100 Carbon Dioxide 27 Anion Gap 13 BUN 13 D Creatinine 0.9 Random Glucose 97 Calcium 9.1 M.pneumoniae IgM Titer <770 06/30/2016 CT chest showed Findings consistent with consolidation/pneumonia mainly in the left upper lobe. 06/30/2016: CXR: Left Parahilar consolidation with air bronchograms EKG: Sinus tachycardia with T wave inversion in I, AVL, V4, V5, V6, minimal ST elevation or early repolarization in leads V1, V2, v3, qwaves in lead v1, v2 HOSPITAL COURSE: Date of Admission:06/30/16 Date of Discharge: 07/04/16 ASSESSMENT/PLAN: Patient is a 60 year old male with no significant past medical history (patient hasn't visited the doctor since 30 years) presented to the ED with complaint of chest pain, fever, cough was found to have left mid-lung infiltrates, consolidation and ekg abnormalities. Admitted with the diagnosis of Severe Sepsis from community acquired pneumonia- Resolving. ON admission: CXR Left Parahilar consolidation with air bronchograms. CT chest showed Findings consistent with consolidation/pneumonia mainly in the left upper lobe. Admitted in Telemetry for continuous cardiac monitoring. Treated with IV hydration and IV Ceftriaxone and IV Azithromycin;Duoneb. Urine for legionella Negative. Lactic acidosis resolved after IV hydration and antibiotics. On discharge, prescribing Azithromycin 500mg PO one more day and Cefodoxime 400mg BID x 3 more days. Parosyxsmal Atrial fibrillation. Seen on the monitor 06/29 on Tetemetry. CHADsVASc score 1. Throughout admission, he was in sinus rhythm. On Elliquis 5mg PO BID. Because of insurance issue, patient cannot afford to take Elliquis (>400 $/month ) as per the patient. Hence would suggest to take aspirin 81 mg for now until he goes to the [facility] clinic. The number for free clinic has been provided and would decide on continuing either warfarin or elliquis once he visits the clinic after a week. Patient verbalizes the risks and benefits of using the blood thinners. Chest pain likely due to costochondritis vs pain due to coughing- resolved. ACS ruled out, no acute changes in EKG and troponins negative. Hypertension: Toprol 50mg daily and added amlodipine 5mg daily due to persistent Diastolic BP >100 mmHg. Possible Hypothyroidism vs Euthyroid syndrome. TSH-7.13, Thyroid panel to repeat after his sepsis resolves. Pre-diabetic: HbA1c 6. Diet and exercise counseling. Electrolyte imbalance -Resolved after repletion (Hypophosphatemia/Hypomagnesemia ) Smoking cessation R/O COPD (Needs PFT as outpatient) since patient has been a smoker for more than 30 years. Plan of care explained to the patient. He verbalized understanding. Case seen and discussed with Dr. Morin. Minutes to complete discharge: 45 Discharge Summary Reason For Visit: PNEUMONIA Condition: Improved - Instructions Diet, Activity, Other Instructions: - please follow with our free primary care clinic. [phone]. - At the clinic you might be evaluated to start coumadin if you still can't afford Eliquis ( both blood thinners ) - for now take aspirin daily to thin your blood. - if you go on another blood thinner , please stop taking aspirin as that might increase your risk for bleed - please make every effort to apply for insurance . - when you get insurance , you can see dr. Ngo at the clinic - take antibiotics ( azithro for one more dose tomorrow ) , and cefpodoxime twice a day starting tomorrow fro 3 more days ) . - no smoking. - if you develop , chest pain, palpitations , light headedness, or syncope , come to ER - please pick remover your medications from [facility] ( Yuliya sher ) - you need repeat thyroid function in 2 weeks - Good luck. Referrals: Jackson Ngo MD [Staff Physician] - Disposition: HOME - Home Medications Comprehensive Discharge Medication List: Ambulatory Orders Amlodipine Besylate [Norvasc -] 5 mg PO DAILY #60 tablet 07/04/16 Aspirin Coated [Ecotrin -] 81 mg PO DAILY #30 tab 07/04/16 Azithromycin 500 mg PO DAILY #1 tablet 07/04/16 Cefpodoxime Proxetil [Vantin -] 200 mg PO BID #6 tablet 07/04/16 Metoprolol Succinate [Toprol Xl] 50 mg PO DAILY #60 tab.er.24h 07/04/16 This patient is new to me today: No Emergency Visit: Yes ED Registration Date: 06/30/16 Care time: The patient presented to the Emergency Department on the above date and was hospitalized for further evaluation of their emergent condition. Critical Care patient: No - Discharge Referral Referred to [facility] No
== END 2016-07-04 16:53 | disposition home or self-care (01) | DRG 720 ==
LOC: JER 23:06 → OBSVTOIN 06-30 01:43 → JERBED 06-30 01:43 → UNDOADMOB 06-30 01:48 → JERBED 06-30 01:48 → J4W 06-30 07:37
PROVIDERS: ADMIT Internal Medicine; ATTEND Internal Medicine
DX: A41.9 Sepsis, unspecified organism (principal); J18.9 Pneumonia, unspecified organism; E83.42 Hypomagnesemia; N17.9 Acute kidney failure, unspecified; F17.210 Nicotine dependence, cigarettes, uncomplicated; E66.9 Obesity, unspecified; M94.0 Chondrocostal junction syndrome [Tietze]; I31.3 Pericardial effusion (noninflammatory); R65.20 Severe sepsis without septic shock; R73.03 Prediabetes; E83.39 Other disorders of phosphorus metabolism; I48.0 Paroxysmal atrial fibrillation; E87.8 Other disorders of electrolyte and fluid balance, not elsewhere classified; Z68.31 Body mass index [BMI] 31.0-31.9, adult
CPT/HCPCS: 36415; 71010-TC; 71020-TC; 71260-TC; 80048; 80053; 80061; 82550; 82553; 83036; 83605; 83721; 83735; 84100; 84443; 84484; 85025; 85027; 85379; 85610; 85730; 86038; 86480; 86738; 87040; 87899; 93005; 93010; 93306-TC; 94640; 99283-25; J1644

== ENCOUNTER 2022-09-25 12:24 | Emergency (ER) | payer OTHER ==
[2022-09-25 12:54] VITALS: BMI 30.2
[2022-09-25] MEDS ORDERED: amLODIPine BESYLATE 5 MG TABLET (FP) PO ONE (13:31)
[2022-09-25 13:40] VITALS: PULSE 82; RESP 18; TEMP 98
[2022-09-25] MEDS ORDERED: amLODIPine BESYLATE 5 MG TABLET (FP) ONE (13:40)
[2022-09-25 14:43] LABS: BASO % 1.1 % (0-2.0); EOS % 0.5 % (0-4.5); HEMATOCRIT 41.9 % (35.4-49); HEMOGLOBIN 14.1 GM/dL (11.7-16.9); LYMPH % 31.8 % (8-40); MCH 33.3 pg (25.7-33.7); MCHC 33.8 g/dl (32.0-35.9); MEAN CELL VOLUME 98.5 fl (80-96); MEAN PLT VOLUME 9.3 fl (7.5-11.1); MONO % 8.3 % (3.8-10.2); NEUT % 58.3 % (42.8-82.8); PLATELET COUNT 274 10^3/uL (134-434); RBC 4.25 M/mm3 (4.00-5.60); RDW 13.8 % (11.9-15.9)
[2022-09-25 14:46] LABS: INR 0.98 (0.83-1.09); PROTHROMBIN TIME (PATIENT) 11.4 SEC (9.7-13.0)
[2022-09-25 14:48] LABS: ACTIVATED PTT 27.6 SECONDS (25.2-36.5)
[2022-09-25 15:02] LABS: POTASSIUM 4.2 mmol/L (3.5-5.1)
[2022-09-25 15:03] VITALS: BP 178/104
[2022-09-25 15:04] LABS: ALBUMIN 3.8 g/dl (3.4-5.0); BLOOD UREA NITROGEN 11.1 mg/dL (7-18)
[2022-09-25 15:09] LABS: BILIRUBIN,TOTAL 0.4 mg/dL (0.2-1); TOT PROT 7.3 g/dl (6.4-8.2)
== END 2022-09-25 15:47 | disposition home or self-care (01) ==
LOC: JER 12:24
DX: I10 Essential (primary) hypertension (principal); R04.0 Epistaxis
CPT/HCPCS: 36415; 71046-TC-FY; 80053; 83036; 84484; 85025; 85610; 85730; 93005; 93010; 99285-25